=== PATIENT | female | born 1935 | race Caucasian/White ===

== ENCOUNTER 2018-11-08 10:12 | Day surgery (SDC) | payer MEDICARE ==
[~2018-11-08 10:12] MED LIST: LACTATED RINGERS 1,000 ML IV SCH; SODIUM CHLORIDE 0.9% 1,000 ML IV SCH
[2018-11-08] MEDS ORDERED: CLINDAMYCIN 600 MG in SODIUM CHLORIDE 0.9% IRRIGATIO 250 ML IRRIGATION ONE (11:30)
[2018-11-08] MEDS ORDERED: CLINDAMYCIN 900 MG in DEXTROSE 5% IN WATER 50 ML IVPB ONE ×2 (11:30)
[2018-11-08] MEDS ORDERED: MIDAZOLAM 2 MG/2 ML VIAL ONE (12:45)
[2018-11-08] MEDS ORDERED: fentaNYL (PF) 50 MCG/ML 2 ML AMP ONE (12:45)
[2018-11-08] MEDS ORDERED: PROPOFOL 10 MG/ML 20 ML VIAL IV ONE (12:45)
[2018-11-08] MEDS ORDERED: LIDOCAINE 1% INJ 10MG/ML (20 ML MDV) ONE (13:04)
[2018-11-08] MEDS ORDERED: LIDOCAINE 1% INJ 10MG/ML (20 ML MDV) SQ ONE ×2 (13:29→13:45)
[2018-11-08] MEDS ORDERED: ACETAMINOPHEN TAB 325 MG TAB PO PRN (14:10)
[2018-11-08] MEDS ORDERED: ACETAMINOPHEN IV (For NPO) 1,000 MG in EMPTY BAG 1 BAG IVPB ONE (14:10)
[2018-11-08] MEDS ORDERED: SPIRONOLACTONE 25 MG TAB PO STA (14:23)
[2018-11-08] MEDS: CARVEDILOL 12.5 MG TAB PO SCH (17:56)
[2018-11-08] MEDS: HYDROcodone/APAP 5-325MG 1 EACH TAB PO PRN (18:01)
[2018-11-08] MEDS: CLINDAMYCIN 900 MG in DEXTROSE 5% IN WATER 50 ML IVPB SCH ×2 (18:01)
[2018-11-08 18:10] VITALS: BMI 20.9
--- NOTE | 2018-11-08 18:55 | PCN ---
PROCEDURE NOTE DATE OF SERVICE: 11/08/2018 This patient is an 83-year-old female with ischemic cardiomyopathy, underlying left bundle branch block and class 2 CHF, left ventricular ejection fraction 35%. Her device is at [facility] and she was brought in for a biventricular ICD generator change. Patient was brought to the EP lab in a fasting state. Written informed consent was obtained prior to the procedure. Cinefluoroscopy of the leads revealed a screw-in lead in the right atrium, dual-coil ICD lead in the low RV septum and an LV lead, bipolar, in the posterolateral vein. There was left bundle branch block with a QRS width of 150 milliseconds. The left pectoral area was prepped and draped as per protocol. Lidocaine 1% was used for local anesthesia. A 4 cm incision was made directly over the generator and carried down to the level of the generator. The old generator was explanted. This was a Compellon Lumax 540 heart failure-T, serial number [id number]. The new generator that was implanted was a S-cubism model number [id number], serial number [id number]. Partial capsulectomy was performed. The leads were interrogated and were functioning normally. The P-waves were 2.9 mV. Pacing impedance in the atrium was 703 ohms. Pacing thresholds were 0.5 V at 0.5 milliseconds. The RV sensing was 20 mV. Pacing impedance was 570 ohms. HVB impedance 49 ohms. Pacing thresholds were 0.5 V at 0.5 milliseconds. The LV threshold was 0.75 V at 0.5 milliseconds. Pacing impedance 513 ohms. The device was placed in the subfascial pocket. The wound was closed in 3 layers and dressed per protocol. The device was then programmed with appropriate antitachycardia pacing, cardioversion and defibrillation with biventricular pacing with LV pacing. The patient tolerated the procedure well without any acute complications. RESULTS: Successful biventricular ICD generator change for ischemic cardiomyopathy, severe LV systolic dysfunction, ejection fraction 35%, CHF class 2, on appropriate medical treatment, and underlying left bundle branch block, QRS width 150 milliseconds. MMODL / IJN: [id number] /
--- NOTE | 2018-11-08 19:01 | LTR ---
November 08, 2018 To: Dr. Mario Courtney Re: [place] Malcolm (35) Dear Mario, I had the pleasure of seeing [place] Malcolm in electrophysiology followup. [place]'s biventricular ICD was at [facility] and she underwent biventricular ICD generator change. She will continue to follow up with you and will see us in the device clinic as per schedule. Her medications remain unchanged. Thank you for entrusting us with the care of your patient. Warm regards. Sincerely, Maik BROWNL / KAVITHAN: [id number] /
[2018-11-08] MEDS ORDERED: PRAVASTATIN SODIUM 40 MG TAB PO SCH (21:00)
[2018-11-08] MEDS ORDERED: FUROSEMIDE 40 MG TAB PO SCH (21:00)
[2018-11-09] MEDS: HYDROcodone/APAP 5-325MG 1 EACH TAB PO PRN (00:56)
[2018-11-09] MEDS: CLINDAMYCIN 900 MG in DEXTROSE 5% IN WATER 50 ML IVPB SCH ×6 (00:57→12:00)
[2018-11-09 06:20] LABS: Calcium 8.8 mg/dL (8.4-10.2); Potassium 4.6 mmol/L (3.5-5.1)
--- NOTE | 2018-11-09 07:24 | P.DS ---
Providers Attending physician: Maik Gastelum Primary care physician: [facility] Course: Patient is doing well. Sitting up in bed eating breakfast. Her chest discomfort no bruising minimal soakage no swelling over the by the ICD site No dizziness lightheadedness no palpitations respirations are normal no distress On examination afebrile 97.4F pulse rate in the 50s Bi V paced normal respirations Blood pressure 98/54 mmHg Breath sounds are clear no rhonchi no crackles Heart sounds S1 and S2 are normal no murmurs or gallops or rub Abdomen soft nontender Extremities warm no edema Impression Ischemic cardio myopathy with underlying left bundle branch block with a QRS width of 150 ms) CHF class II on medical treatment Her biventricular ICD that was implanted in [place] in 2011 has reached ANA and she underwent ICD generator change, biventricular Chronic kidney disease GFR around 40 Pacemaker defibrillator Leads functioning normally Suggest Add spironolactone to her current regimen. Femoral grams by mouth daily Continue all other heart failure medications line smoking cessation Discharge home after completion of IV antibiotics follow up in the office in 5 days Plan - Discharge Summary Discharge Rx Participant: No New Discharge Prescriptions: New RX: Spironolactone [Aldactone] 25 mg PO DAILY #90 tablet Continue RX: Carvedilol [Coreg] 12.5 mg PO BID RX: Fish Oil/Dha/Epa [Fish Oil 1,200 mg Fish Oil] 1 cap PO DAILY RX: Furosemide [Lasix] 40 mg PO HS RX: Lisinopril [Prinivil] 20 mg PO DAILY RX: Multivitamins, Thera [Multivitamin (formulary)] 1 tab PO DAILY RX: Pravastatin Sodium [Pravachol] 40 mg PO HS Discharge Medication List RX: Carvedilol [Coreg] 12.5 mg PO BID 09/27/16 [History] RX: Fish Oil/Dha/Epa [Fish Oil 1,200 mg Fish Oil] 1 cap PO DAILY 09/27/16 [ History] RX: Furosemide [Lasix] 40 mg PO HS 09/27/16 [History] RX: Lisinopril [Prinivil] 20 mg PO DAILY 09/27/16 [History] RX: Multivitamins, Thera [Multivitamin (formulary)] 1 tab PO DAILY 09/27/16 [ History] RX: Pravastatin Sodium [Pravachol] 40 mg PO HS 09/27/16 [History] RX: Spironolactone [Aldactone] 25 mg PO DAILY #90 tablet 11/08/18 [Rx] Follow up Appointment(s)/Referral(s): Maik Gastelum MD [STAFF PHYSICIAN] - 1 Week (Device clinic follow-up in 5 days Follow-up with Dr. Eubanks in 6 months) Activity/Diet/Wound Care/Special Instructions: PATIENT EDUCATION MATERIAL Instructions following a heart rhythm device implant. 1. Keep dressing DRY for 5 DAYS. You may cover the area with Saran or Cling Wrap, prior to a shower. 2. The dressing will be removed in the Device Clinic at [facility]. Absorbable sutures were used to close the wound. 3. Avoid raising the left arm above the shoulder level. 2 week restriction 4. Avoid arm movements, like backscratching, rubbing the head, or pulling on a cord. 2 weeks restriction 5. Gentle range of motion movements of the shoulder, closest to the incision should be performed to avoid a frozen shoulder. (Pendulum exercises of the shoulder) 6. The opposite arm may be used freely. 7. Avoid driving for 7 days. 8. Avoid activities such as golfing, swimming, weed whacking, lifting more than 10 pounds weight, bowling, gymnastics and weight training/lifting. (6 weeks restriction) 9. Activities such as wood chopping with an axe, pull-ups in the gymnasium, power lifting, arc-welding, being close to home induction cooktops will always be a problem. 10. Arm sling is only a reminder not to raise the arm above the head. You do not need to keep the arm completely immobilized. Your free to move the arm and use it and for normal activities. In case of any problems, please call [facility], Brandon Sumner, @ [phone], Attention: Device Clinic Device clinic follow-up in 5 days Follow-up with primary it program manager in 2-3 months Discharge Disposition: HOME SELF-CARE
[2018-11-09 08:45] VITALS: RESP 16
[2018-11-09] MEDS ORDERED: SPIRONOLACTONE 25 MG TAB PO SCH (09:00)
[2018-11-09] MEDS ORDERED: LISINOPRIL 20 MG TAB PO SCH (09:00)
[2018-11-09] MEDS: CARVEDILOL 12.5 MG TAB PO SCH (09:56)
[2018-11-09 10:02] VITALS: PULSE 60
[2018-11-09 12:43] VITALS: BP 114/56; TEMP 97.5
== END 2018-11-09 13:15 | disposition home or self-care (01) ==
LOC: CATHEP 10:12 → 1SOBS 14:09 → CATHEP 11-09 13:15
PROVIDERS: ATTEND Internal Medicine Clinical Cardiac Electrophysiology
DX: Z45.02 Encounter for adjustment and management of automatic implantable cardiac defibrillator (principal); I25.5 Ischemic cardiomyopathy; I44.7 Left bundle-branch block, unspecified; I13.0 Hypertensive heart and chronic kidney disease with heart failure and stage 1 through stage 4 chronic kidney disease, or unspecified chronic kidney disease; E11.22 Type 2 diabetes mellitus with diabetic chronic kidney disease; N18.9 Chronic kidney disease, unspecified; I50.22 Chronic systolic (congestive) heart failure; I25.10 Atherosclerotic heart disease of native coronary artery without angina pectoris; E78.5 Hyperlipidemia, unspecified; J18.9 Pneumonia, unspecified organism; F17.210 Nicotine dependence, cigarettes, uncomplicated; Z79.82 Long term (current) use of aspirin; Z79.899 Other long term (current) drug therapy; Z88.1 Allergy status to other antibiotic agents; Z88.0 Allergy status to penicillin; Z88.2 Allergy status to sulfonamides; Z91.012 Allergy to eggs
CPT/HCPCS: 33264; 80061; 80048; C1882; J2250; J2001; J3010; J0131; J2704

== ENCOUNTER → 2019-02-26 | Outpatient (CLI) | payer MEDICARE ==
--- NOTE | 2019-02-26 11:24 | XR ---
EXAM TYPE: LUMBAR SPINE X RAY SERIES COMPARISON: NONE HISTORY: Lower back pain TECHNIQUE: 4 views are submitted. FINDINGS: Alignment is anatomic. The pedicles are intact. The transverse processes are intact. There is no s pondylolysis or spondylolisthesis. Diffuse osteopenia and multilevel degenerative disc disease. Arth ropathy of the left SI joint. There is facet arthropathy. Atherosclerotic change of the vasculature. Calcifications in the left upper quadrant likely are vascular. IMPRESSION: 1. Multilevel degenerative disc disease and diffuse osteopenia.
== END | disposition home or self-care (01) ==
LOC: RADXRYALE 10:54
PROVIDERS: ATTEND Family Medicine
DX: M51.36 Other intervertebral disc degeneration, lumbar region (principal); M85.88 Other specified disorders of bone density and structure, other site
CPT/HCPCS: 72100

== ENCOUNTER → 2022-02-10 | Outpatient (CLI) | payer MEDICARE ==
--- NOTE | 2022-02-10 10:34 | XR ---
EXAMINATION TYPE: XR chest 2V DATE OF EXAM: 02/10/2022 COMPARISON: NONE TECHNIQUE: PA and lateral views submitted. HISTORY: Cough FINDINGS: The lungs are clear and there is no pneumothorax, pleural effusion, or focal pneumonia. Hyperinflat ion. Hypertrophic and degenerative change of the spine. There is a cardiac device seen. IMPRESSION: 1. No acute process. Correlate for COPD.
== END | disposition home or self-care (01) ==
LOC: RADXRYALE 10:13
PROVIDERS: ATTEND Physician Assistant
DX: R05.9 Cough, unspecified (principal)
CPT/HCPCS: 71046

== ENCOUNTER 2022-02-23 11:29 | Day surgery (SDC) | payer MEDICARE ==
[2022-02-22 09:23] VITALS: BMI 20.2
[~2022-02-23 11:29] MED LIST changes: +DEXAMETHASONE SOD PHOSPHATE 4 MG/ML 1 ML VIAL IV ONE; +HYDROmorphone 0.5 MG/0.5 ML SYRINGE IVP PRN; +LIDOCAINE 1% (10MG/ML) FOR IV START INTRADERMA PRN; +ONDANSETRON 4 MG/2 ML VIAL IVP ONE; -SODIUM CHLORIDE 0.9% 1,000 ML IV SCH
[2022-02-23] MEDS ORDERED: PROPOFOL 10 MG/ML 20 ML VIAL IV ONE (13:05)
[2022-02-23] MEDS ORDERED: LIDOCAINE 2% INJ 20 MG/ML (2 ML VIAL) ONE (13:05)
[2022-02-23] MEDS ORDERED: PHENYLEPHRINE-0.9% NACL SYG 1,000 MCG/10 ML SYRINGE ONE (13:05)
[2022-02-23] MEDS ORDERED: BUPIVACAINE (PF) 0.25% 30 ML VIAL SQ ONE (13:09)
--- NOTE | 2022-02-23 13:49 | P.OP ---
Date of Procedure: 02/23/22 Preoperative Diagnosis: Hypertrophied bone fifth toe right foot Postoperative Diagnosis: Same Procedure(s) Performed: Partial phalangectomy fifth digit right foot Anesthesia: MAC Surgeon: Benson Webber Description of Procedure: On the date of surgery the patient was taken operating room in good condition placed on the operating table supine position where an IV had been started and general anesthetic agents were administered anesthesia was then further supplemented with 4 mL of 0.25% plain Marcaine given in a digital block to the fifth digit of the patient's right foot. The patient's right foot and ankle were then prepped and draped in the usual aseptic manner and over heavy web roll padding an ankle tourniquet had been placed above the malleoli of the patient's right ankle the patient's right foot and ankle were then elevated and exsanguinated of blood utilizing Esmarch bandage and the ankle tourniquet to the patient's right ankle was inflated to 250 mmHg At this time attention was directed to the dorsal lateral side of the distal interphalangeal joint fifth digit of the right foot where an approximately 0.75 cm linear incision was made the incision was deepened via sharp dissection down through the level of the subcutaneous tissue layers all neurovascular structures encountered were identified isolated and were retracted. Some parosteal structures then incised in line with the original skin incision and underscored and retracted from the underlying bone Rotary bur was then introduced and the distal interphalangeal joint was craterized removing portions of the middle and distal phalanx at the level of the distal interphalangeal joint. When it was determined adequate bone had been resected copious amounts of sterile saline solution was used to irrigate the surgical site. Utilizing 4-0 nylon simple interrupted suture vision was coaptated and maintained. Adaptic, I fours and Kerlix roll was used to form a compression dressing was covered with 4 inch Coban. The ankle tourniquet to the patient's right ankle was deflated and adequate hemostatic return was seen in all digits of the patient's right foot in particular the fifth digit of the right foot. The patient tolerated the surgery and anesthesia well was taken to the recovery room in good postoperative condition.
[2022-02-23 14:00] VITALS: TEMP 97.4
[2022-02-23 14:39] VITALS: PULSE 60
[2022-02-23 14:52] VITALS: BP 123/65; RESP 18
== END 2022-02-23 15:54 | disposition home or self-care (01) ==
LOC: OR 11:29
PROVIDERS: ATTEND Podiatrist Foot & Ankle Surgery
DX: M89.371 Hypertrophy of bone, right ankle and foot (principal); L84 Corns and callosities; I10 Essential (primary) hypertension; Z79.899 Other long term (current) drug therapy; Z88.1 Allergy status to other antibiotic agents; Z88.0 Allergy status to penicillin; Z88.2 Allergy status to sulfonamides; Z98.891 History of uterine scar from previous surgery
CPT/HCPCS: 28124; J1100; J0690; J2405; J2370; J2704; J2001

== ENCOUNTER → 2022-06-09 | Outpatient (CLI) | payer MEDICARE ==
--- NOTE | 2022-06-09 11:03 | XR ---
EXAM TYPE: LUMBAR SPINE X RAY SERIES COMPARISON: 02/26/2019 HISTORY: Pain TECHNIQUE: 4 views are submitted. FINDINGS: Alignment is anatomic. The pedicles are intact. The transverse processes are intact. There is mode rate to severe multilevel degenerative disc disease at all levels. Multilevel facet arthropathy most pronounced at L4-5 and L5-S1. Vascular calcifications noted. Stable minimal anterior listhesis of L4 on L5 likely degenerative. Bilateral SI joint arthropathy. IMPRESSION: 1. Multilevel moderate to severe degenerative disc disease with facet arthropathy in the lower lumbar spine. Suspect foraminal encroachment L4-5 and L5-S1. 2. Minimal anterolisthesis L4 and L5 appears likely degenerative. 3. SI joint arthropathy
--- NOTE | 2022-06-09 11:04 | XR ---
EXAMINATION TYPE: XR abdomen 2V DATE OF EXAM: 06/09/2022 COMPARISON: NONE HISTORY: Pain TECHNIQUE: One view abdominal series FINDINGS: The osseous structures are intact. The bowel gas pattern is nonspecific. Lung bases are clear. Hype rtrophic and degenerative changes of the spine. Arthropathy of the hips. Vascular calcifications note d. Cardiac leads seen. IMPRESSION: 1. Nonspecific abdomen.
== END | disposition home or self-care (01) ==
LOC: RADXRYALE 10:32
PROVIDERS: ATTEND Physician Assistant
DX: M51.37 Other intervertebral disc degeneration, lumbosacral region (principal); M47.817 Spondylosis without myelopathy or radiculopathy, lumbosacral region; M53.3 Sacrococcygeal disorders, not elsewhere classified; M43.16 Spondylolisthesis, lumbar region; R10.84 Generalized abdominal pain
CPT/HCPCS: 72110; 74019

== ENCOUNTER 2023-08-28 10:46 | Inpatient (IN) | payer MEDICARE ==
--- NOTE | 2023-08-28 12:24 | ED ---
General Adult HPI - General Source: patient Mode of arrival: ambulatory Limitations: no limitations <Damaris Lester - Last Filed: 08/28/23 16:50> <Shon Charles - Last Filed: 08/28/23 19:27> - General Chief complaint: Upper Respiratory Infection Stated complaint: COUGH Time Seen by Provider: 08/28/23 10:55 - History of Present Illness Initial comments: 88-year-old female presents emergency department reporting cough. States that she had a cough for the past couple of days. She is a heavy smoker. Denies any production of her cough. She does have a diagnosis of COPD. Does not wear any oxygen. Does not do any breathing treatments. Does have a history of congestive heart failure takes Lasix. She denies any chest pain. Denies any sick contacts. History is limited as the patient is a poor historian. Son does present to bedside. States that he feels as if his mother had acute mental status change. Son does not live with the patient. He is unsure her last known well but states she is not her normal self. She has had some delayed speech. Patient feels as if her mental status change sometime yesterday morning however she originally did not report this to me when I first evaluated her. (Damaris Lester) - Related Data Home Medications Medication Instructions Recorded Confirmed Carvedilol [Coreg] 12.5 mg PO BID 09/27/16 08/28/23 Furosemide [Lasix] 40 mg PO DAILY 09/27/16 08/28/23 Pravastatin Sodium [Pravachol] 40 mg PO HS 09/27/16 08/28/23 lisinopriL [Prinivil] 5 mg PO HS 09/27/16 08/28/23 Allergies Allergy/AdvReac Type Severity Reaction Status Date / Time azithromycin Allergy Rash/Hives Verified 08/28/23 17:49 egg Allergy Rash/Hives Verified 08/28/23 17:49 erythromycin base Allergy Rash/Hives Verified 08/28/23 17:49 Penicillins Allergy Rash/Hives Verified 08/28/23 17:49 Sulfa (Sulfonamide Allergy Rash/Hives Verified 08/28/23 17:49 Antibiotics) Review of Systems ROS Other: All systems not noted in ROS Statement are negative. <Damaris Lester - Last Filed: 08/28/23 16:50> ROS Other: All systems not noted in ROS Statement are negative. <MelvinShon Yehuda - Last Filed: 08/28/23 19:27> ROS Statement: Those systems with pertinent positive or pertinent negative responses have been documented in the HPI. Past Medical History Past Medical History: Coronary Artery Disease (CAD), Hypertension History of Any Multi-Drug Resistant Organisms: None Reported Past Surgical History: Pacemaker Past Psychological History: No Psychological Hx Reported Smoking Status: Current every day smoker Past Alcohol Use History: None Reported Past Drug Use History: None Reported <Damaris Lester A - Last Filed: 08/28/23 16:50> General Exam Limitations: no limitations General appearance: alert, in no apparent distress Head exam: Present: atraumatic, normocephalic, normal inspection Eye exam: Present: normal appearance, PERRL, EOMI. Absent: scleral icterus, conjunctival injection, periorbital swelling ENT exam: Present: normal exam, mucous membranes moist Neck exam: Present: normal inspection. Absent: tenderness, meningismus, lymphadenopathy Respiratory exam: Present: normal lung sounds bilaterally. Absent: respiratory distress, wheezes, rales, rhonchi, stridor Cardiovascular Exam: Present: regular rate, normal rhythm, normal heart sounds. Absent: systolic murmur, diastolic murmur, rubs, gallop, clicks GI/Abdominal exam: Present: soft, normal bowel sounds. Absent: distended, tenderness, guarding, rebound, rigid Extremities exam: Present: normal inspection, full ROM, normal capillary refill. Absent: tenderness, pedal edema, joint swelling, calf tenderness Back exam: Present: normal inspection Neurological exam: Present: alert, oriented X3, CN II-XII intact Psychiatric exam: Present: normal affect, normal mood Skin exam: Present: warm, dry, intact, normal color. Absent: rash <Damaris Letser Felipa - Last Filed: 08/28/23 16:50> Course Vital Signs 08/28/23 08/28/23 08/28/23 10:51 10:57 14:37 Temperature 98.8 F Pulse Rate 75 81 Respiratory 20 20 Rate Blood Pressure 149/58 O2 Sat by Pulse 93 L Oximetry 08/28/23 08/28/23 08/28/23 14:47 15:00 17:03 Temperature Pulse Rate 84 69 73 Respiratory 18 18 Rate Blood Pressure 146/65 156/72 O2 Sat by Pulse 94 L 92 L Oximetry 08/28/23 17:25 Temperature Pulse Rate 103 H Respiratory 18 Rate Blood Pressure 156/58 O2 Sat by Pulse 98 Oximetry Medical Decision Making - Lab Data Result diagrams: 08/28/23 11:39 08/28/23 11:39 <Damaris Lester Felipa - Last Filed: 08/28/23 16:50> - Lab Data Result diagrams: 08/28/23 11:39 08/28/23 11:39 <MelvinShon Yehuda - Last Filed: 08/28/23 19:27> - Medical Decision Making Was pt. sent in by a medical professional or institution (, PA, MMA FIGHTER, urgent care, hospital, or detention...) When possible be specific @ -[No] Did you speak to anyone other than the patient for history (EMS, parent, family, police, friend...)? What history was obtained from this source @ -[No] Did you review nursing and triage notes (agree or disagree)? Why? @ -[I reviewed and agree with nursing and triage notes] Were old charts reviewed (outside hosp., previous admission, EMS record, old EKG, old radiological studies, urgent care reports/EKG's, detention records)? Report findings @ -[No old charts were reviewed] Differential Diagnosis (chest pain, altered mental status, abdominal pain women, abdominal pain men, vaginal bleeding, weakness, fever, dyspnea, syncope, headache, dizziness, GI bleed, back pain, seizure, CVA, palpatations, mental health, musculoskeletal)? @ -[not applicable] EKG interpreted by me (3pts min.). @ -Yes and demonstrates pacemaker with a rate of 68. FL interval 155. QRS 128. QTC of 465. No acute ST segment elevations or pressure. Pacemaker captures appropriately X-rays interpreted by me (1pt min.). @ -[None done] CT interpreted by me (1pt min.). @ -[None done] U/S interpreted by me (1pt. min.). @ -[None done] What testing was considered but not performed or refused? (CT, X-rays, U/S, labs)? Why? @ -[None] What meds were considered but not given or refused? Why? @ -[None] Did you discuss the management of the patient with other professionals (professionals i.e. Dr., PA, MMA FIGHTER, lab, RT, psych nurse, social studies department chair, hand almond blancher, teacher, property and supply officer, case packer and sealer)? Give summary @ -[No] Was smoking cessation discussed for >3mins.? @ -[No] Was critical care preformed (if so, how long)? @ -[No] Were there social determinants of health that impacted care today? How? (Homelessness, low income, unemployed, alcoholism, drug addiction, transportation, low edu. Level, literacy, decrease access to med. care, long term, rehab)? @ -[No] Was there de-escalation of care discussed even if they declined (Discuss DNR or withdrawal of care, Hospice)? DNR status @ -[No] What co-morbidities impacted this encounter? (DM, HTN, Smoking, COPD, CAD, Cancer, CVA, ARF, Chemo, Hep., AIDS, mental health diagnosis, sleep apnea, morbid obesity)? @ -[None] Was patient admitted / discharged? Hospital course, mention meds given and route, prescriptions, significant lab abnormalities, going to OR and other pertinent info. @ -[hospital course] Undiagnosed new problem with uncertain prognosis? @ -[No] Drug Therapy requiring intensive monitoring for toxicity (Heparin, Nitro, Insulin, Cardizem)? @ -[No] Were any procedures done? @ -[No] Diagnosis/symptom? @ -[default] Acute, or Chronic, or Acute on Chronic? @ -[default] Uncomplicated (without systemic symptoms) or Complicated (systemic symptoms)? @ -[default] Side effects of treatment? @ -[No] Exacerbation, Progression, or Severe Exacerbation? @ -[No] Poses a threat to life or bodily function? How? (Chest pain, USA, VA, pneumonia, PE, COPD, DKA, ARF, appy, cholecystitis, CVA, Diverticulitis, Homicidal, Suicidal, threat to staff... and all critical care pts) @ -[No] (Damaris Lester) Patient is signed out to me by previous shift physician, Dr. Lester. Briefly, patient is 80-year-old female initially presented to the emergency department for home for cough. Family did arrive later and was concerned about patient's altered mental status. She had a computed tomography scan of brain that showed acute versus subacute CVA. His unclear when patient's last known normal was. Patient had a candidate for alteplase. Plan was to follow-up with CT angiography for evaluation of large vessel occlusion. CT angiography of the hea d and neck was negative. Patient reevaluated at bedside at 7:30 PM found to be within stable medical condition. Patient will be admitted with consultation to neurology. Patient given an aspirin. (Shon Charles) - Lab Data Lab Results 08/28/23 08/28/23 08/28/23 Range/Units 11:39 11:39 11:39 WBC 6.7 (3.8-10.6) k/uL RBC 4.85 (3.80-5.40) m/uL Hgb 14.3 (11.4-16.0) gm/dL Hct 44.2 (34.0-46.0) % MCV 91.1 (80.0-100.0) fL MCH 29.4 (25.0-35.0) pg MCHC 32.3 (31.0-37.0) g/dL RDW 12.7 (11.5-15.5) % Plt Count 160 (150-450) k/uL MPV 8.4 Neutrophils % 68 % Lymphocytes % 23 % Monocytes % 5 % Eosinophils % 2 % Basophils % 1 % Neutrophils # 4.5 (1.3-7.7) k/uL Lymphocytes # 1.5 (1.0-4.8) k/uL Monocytes # 0.4 (0-1.0) k/uL Eosinophils # 0.1 (0-0.7) k/uL Basophils # 0.1 (0-0.2) k/uL PT 11.6 (10.0-12.5) sec INR 1.1 (<1.2) APTT 26.0 (22.0-30.0) sec Sodium 146 H (137-145) mmol/L Potassium 4.8 (3.5-5.1) mmol/L Chloride 104 (98-107) mmol/L Carbon Dioxide 27 (22-30) mmol/L Anion Gap 15 mmol/L BUN 28 H (7-17) mg/dL Creatinine 1.11 H (0.52-1.04) mg/dL Est GFR (CKD-EPI)AfAm 51 (>60 ml/min/1.73 sqM) Est GFR (CKD-EPI)NonAf 45 (>60 ml/min/1.73 sqM) Glucose 84 (74-99) mg/dL Plasma Lactic Acid Ildefonso (0.7-2.0) mmol/L Calcium 9.9 (8.4-10.2) mg/dL Total Bilirubin 1.2 (0.2-1.3) mg/dL AST 28 (14-36) U/L ALT 17 (4-34) U/L Alkaline Phosphatase 70 (38-126) U/L Troponin I (0.000-0.034) ng/mL NT-Pro-B Natriuret Pep 4240 pg/mL Total Protein 7.6 (6.3-8.2) g/dL Albumin 4.2 (3.5-5.0) g/dL Influenza Type A (PCR) (Not Detectd) Influenza Type B (PCR) (Not Detectd) RSV (PCR) (Not Detectd) SARS-CoV-2 (PCR) (Not Detectd) 08/28/23 08/28/23 08/28/23 Range/Units 11:39 11:39 11:39 WBC (3.8-10.6) k/uL RBC (3.80-5.40) m/uL Hgb (11.4-16.0) gm/dL Hct (34.0-46.0) % MCV (80.0-100.0) fL MCH (25.0-35.0) pg MCHC (31.0-37.0) g/dL RDW (11.5-15.5) % Plt Count (150-450) k/uL MPV Neutrophils % % Lymphocytes % % Monocytes % % Eosinophils % % Basophils % % Neutrophils # (1.3-7.7) k/uL Lymphocytes # (1.0-4.8) k/uL Monocytes # (0-1.0) k/uL Eosinophils # (0-0.7) k/uL Basophils # (0-0.2) k/uL PT (10.0-12.5) sec INR (<1.2) APTT (22.0-30.0) sec Sodium (137-145) mmol/L Potassium (3.5-5.1) mmol/L Chloride (98-107) mmol/L Carbon Dioxide (22-30) mmol/L Anion Gap mmol/L BUN (7-17) mg/dL Creatinine (0.52-1.04) mg/dL Est GFR (CKD-EPI)AfAm (>60 ml/min/1.73 sqM) Est GFR (CKD-EPI)NonAf (>60 ml/min/1.73 sqM) Glucose (74-99) mg/dL Plasma Lactic Acid Ildefonso 1.4 (0.7-2.0) mmol/L Calcium (8.4-10.2) mg/dL Total Bilirubin (0.2-1.3) mg/dL AST (14-36) U/L ALT (4-34) U/L Alkaline Phosphatase (38-126) U/L Troponin I 0.026 (0.000-0.034) ng/mL NT-Pro-B Natriuret Pep pg/mL Total Protein (6.3-8.2) g/dL Albumin (3.5-5.0) g/dL Influenza Type A (PCR) Not Detected (Not Detectd) Influenza Type B (PCR) Not Detected (Not Detectd) RSV (PCR) Not Detected (Not Detectd) SARS-CoV-2 (PCR) Not Detected (Not Detectd) Disposition <Damaris Lester - Last Filed: 08/28/23 16:50> Decision Time: 19:27 <Shon Charles - Last Filed: 08/28/23 19:27> Clinical Impression: CVA (cerebral vascular accident) Disposition: ADMITTED IP TO THIS HOSP Condition: Fair Referrals: Mario Courtney DO [Primary Care Provider] - 1-2 days
[2023-08-28 12:29] LABS: Basophils # (A) 0.1 k/uL (0-0.2); Basophils % (A) 1 %; Eosinophils # (A) 0.1 k/uL (0-0.7); Eosinophils % (A) 2 %; HCT 44.2 % (34.0-46.0); HGB 14.3 gm/dL (11.4-16.0); Lymphocytes # (A) 1.5 k/uL (1.0-4.8); Lymphocytes % (A) 23 %; MCH 29.4 pg (25.0-35.0); MCHC 32.3 g/dL (31.0-37.0); MCV 91.1 fL (80.0-100.0); Mean Platelet Volume 8.4; Monocytes # (A) 0.4 k/uL (0-1.0); Monocytes % (A) 5 %; Neutrophils # (A) 4.5 k/uL (1.3-7.7); Neutrophils % (A) 68 %; Platelet Count 160 k/uL (150-450); RBC 4.85 m/uL (3.80-5.40); RDW 12.7 % (11.5-15.5); WBC 6.7 k/uL (3.8-10.6)
[2023-08-28 12:37] LABS: INR 1.1 (<1.2); Prothrombin Time 11.6 sec (10.0-12.5)
--- NOTE | 2023-08-28 12:39 | XR ---
EXAMINATION TYPE: XR chest 2V DATE OF EXAM: 08/28/2023 12:35 PM COMPARISON: Chest radiographs from 02/10/2022 TECHNIQUE: XR chest 2V Frontal and lateral views of the chest. CLINICAL INDICATION:Female, 88 years old with history of difficulty breathing; FINDINGS: Lungs/Pleura: There is flattening of the diaphragm with increased lucency of the lungs. No evidence o f pneumothorax, pleural effusion or focal consolidation. Chronic senescent parenchymal change. Pulmonary vascularity: Unremarkable. Heart/mediastinum: Cardiomediastinal silhouette is enlarged and stable. Atherosclerotic calcificatio ns are seen in the aorta. Three lead cardiac conduction device overlying the left hemithorax with preeti d tips projecting over the right ventricle, right atrium and coronary sinus. Musculoskeletal: No acute osseous pathology. IMPRESSION: 1. No acute cardiopulmonary disease process. 2. COPD changes.
[2023-08-28 12:45] LABS: ALT 17 U/L (4-34); AST 28 U/L (14-36); African American GFR (CKD) 51 (>60 ml/min/1.73 sqM); Albumin 4.2 g/dL (3.5-5.0); Alkaline Phosphatase 70 U/L (38-126); Anion Gap 15 mmol/L; Blood Urea Nitrogen 28 mg/dL (7-17); Calcium 9.9 mg/dL (8.4-10.2); Carbon Dioxide 27 mmol/L (22-30); Chloride 104 mmol/L (98-107); Glucose 84 mg/dL (74-99); Non-African American GFR(CKD) 45 (>60 ml/min/1.73 sqM); Potassium 4.8 mmol/L (3.5-5.1); Sodium 146 mmol/L (137-145); Total Bilirubin 1.2 mg/dL (0.2-1.3); Total Protein 7.6 g/dL (6.3-8.2)
[2023-08-28 12:54] LABS: NT-Pro-B-Type Natriuretic Pept 4240 pg/mL
[2023-08-28] MEDS ORDERED: IPRATROPIUM-ALBUTEROL 3 ML NEB INHALATION STA (13:48)
[2023-08-28] MEDS ORDERED: cefTRIAXone IN SWFI 1,000 MG/10 ML SYRINGE IVP STA (16:19)
--- NOTE | 2023-08-28 16:50 | CT ---
EXAMINATION TYPE: CT brain wo con CT DLP: 1159.4 mGycm, Automated exposure control for dose reduction was used. DATE OF EXAM: 08/28/2023 4:39 PM COMPARISON: None. CLINICAL INDICATION:Female, 88 years old with history of delayed speech, confusion, Delayed speech, c onfusion TECHNIQUE: Brain: Axial CT images of the brain were obtained with coronal and sagittal reformats created and rev iewed. Contrast used: None. Oral contrast used: None. FINDINGS: Brain: Extra-axial spaces: No abnormal extra-axial fluid collections. Ventricular system: Within normal limits Cerebral parenchyma: Mcbride white matter loss of differentiation within the left frontal lobe. No acute intraparenchymal hemorrhage or mass effect. The remainder of the mcbride-white junctions are well diff erentiated. Scattered hypoattenuating areas are seen within the white matter. Cerebellum: Unremarkable. Mass effect: No evidence of midline shift. Intracranial vasculature: Atherosclerotic calcifications of the intracranial vessels. Soft tissues: Normal. Calvarium/osseous structures: No depressed skull fracture. Paranasal sinuses and mastoid air cells: Mild scattered paranasal sinus disease. Visualized orbits: Orbital contents are intact. 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 No evidence for hemorrhagic conversio n. Findings communicated to Dr. Damaris Lester DO on 08/28/2023 4:[address] Philip Russell.
--- NOTE | 2023-08-28 18:52 | CT ---
EXAMINATION TYPE: CT angio head neck CT DLP: 294.2 mGycm, Automated exposure control for dose reduction was used. DATE OF EXAM: 08/28/2023 6:36 PM COMPARISON: CT brain 08/28/2023.. CLINICAL INDICATION:Female, 88 years old with history of stroke; PHH, cva, weakness, ams TECHNIQUE: Axially acquired helical CT angiogram of the head and neck was obtained with contrast. Axi al images are supplemented with 3D reconstructions which [facility] NASCET criteria used. Contrast used:65cc mL of Isovue 370 with IV Contrast, Oral contrast used: None. FINDINGS: CTA HEAD: No evidence of acute intracranial hemorrhage, mass effect, or midline shift. The ventricles, sulci, a nd cisterns are unremarkable. Acute/subacute stanley-white loss of differentiation in the left frontal l obe is less well appreciated on this scan. The visualized portions of the internal carotid arteries, middle cerebral arteries, anterior cerebral arteries, and posterior cerebral arteries are patent. The basilar and vertebral arteries are patent. CTA NECK: Right Carotid System: The common carotid artery and external carotid artery are patent. The carotid bifurcation demonstrate s no evidence of hemodynamically significant stenosis. The remaining portions of the internal carotid artery demonstrate normal size without significant narrowing. Left Carotid System: The common carotid artery and external carotid artery are patent. The carotid bifurcation demonstrate s stent graft present. Stent graft is intact.. The remaining portions of the internal carotid artery demonstrate normal size without significant narrowing. Vertebral arteries are patent without evidence hemodynamically significant stenosis. There is a three-vessel aortic arch. The origins of the great vessels are patent. No evidence of hemo dynamically significant stenosis. Upper thorax: Moderate to severe centrilobular emphysema changes in the lung apices. IMPRESSION: 1. No evidence of dissection of the cervical internal carotid arteries or vertebral arteries or any e vidence of significant stenosis at the right carotid bifurcation. Left carotid bifurcation demonstra caitlin patent stent graft 2. No evidence of intracranial high-grade stenosis or intracranial aneurysm. 3. Please see CT same day for findings regarding the left frontal lobe.
[2023-08-28] MEDS ORDERED: NALOXONE 0.4 MG/ML 1 ML VIAL IV PRN (19:25)
[2023-08-28] MEDS ORDERED: ASPIRIN 81 MG PO STA (19:26)
--- NOTE | 2023-08-29 06:54 | P.HPIM ---
History of Present Illness H&P Date: 08/28/23 Chief Complaint: Shortness of breath 88-year-old female with past medical history of coronary artery disease and hypertension, congestive heart failure Patient is very hard of hearing unable to provide any meaningful history which was obtained by reviewing medical records and discussing case with the adductor Patient initially came in complaining of coughing and shortness of breath which has been going on for couple days she denies any history of COPD however she is a heavy smoker she is not on any breathing treatment not on home oxygen. She denies any chest pain fevers chills sore throat runny nose body aches. Patient's son then at that he feels that his mother mental status has changed however he doesn't live with her and not sure when this started but he confirmed that she does not seem to be her normal self she is having some delayed speech. This was not initially reported in the ED until later which triggered a stroke workup Computed tomography scan of the brain revealed acute/subacute stroke in the left frontal lobe for which patient will be admitted for further neurology evaluation review of systems Unable to obtain patient is very hard of hearing on exam Constitutional: No acute distress, cooperative, cachectic Eyes: Anicteric sclerae, moist conjunctiva, Pupils equal round reactive to light ENMT: NC/AT Oropharynx clear, no erythema, or exudates Neck: Supple, no masses, or JVD No carotid bruits No thyromegaly Lungs: Clear to auscultation Clear to percussion Normal respiratory effort, no accessory muscle use Cardiovascular: Heart regular in rate and rhythm, No murmurs, gallops, or rubs No peripheral edema Abdominal: Soft Nontender, no guarding, rebound or rigidity Abdomen moving with respiration Normoactive bowel sounds No hepatomegaly, No splenomegaly No palpable mass No abdominal wall hernia noted Extremities: No digital cyanosis Pedal pulses weak and symmetrical Radial pulses weak and symmetrical No calf tenderness Psychiatric: Alert but she only says that she is hard of hearing and cannot hear anything that time saying Neuro I used signaling for her to follow some commands which was able to do so however could not evaluate cranial nerves. Strength is 4 out of 5 throughout upper and lower extremities Lymphatics: no palpable cervical or supraclavicular lymph nodes Past Medical History Past Medical History: Coronary Artery Disease (CAD), Hypertension History of Any Multi-Drug Resistant Organisms: None Reported Past Surgical History: Pacemaker Past Psychological History: No Psychological Hx Reported Smoking Status: Current every day smoker Past Alcohol Use History: None Reported Past Drug Use History: None Reported Medications and Allergies Home Medications Medication Instructions Recorded Confirmed Type Carvedilol [Coreg] 12.5 mg PO BID 09/27/16 08/28/23 History Furosemide [Lasix] 40 mg PO DAILY 09/27/16 08/28/23 History Pravastatin Sodium [Pravachol] 40 mg PO HS 09/27/16 08/28/23 History lisinopriL [Prinivil] 5 mg PO HS 09/27/16 08/28/23 History Allergies Allergy/AdvReac Type Severity Reaction Status Date / Time azithromycin Allergy Rash/Hives Verified 08/28/23 17:49 egg Allergy Rash/Hives Verified 08/28/23 17:49 erythromycin base Allergy Rash/Hives Verified 08/28/23 17:49 Penicillins Allergy Rash/Hives Verified 08/28/23 17:49 Sulfa (Sulfonamide Allergy Rash/Hives Verified 08/28/23 17:49 Antibiotics) Physical Exam Vitals: Vital Signs Temp Pulse Resp BP Pulse Ox 08/29/23 06:22 98.7 F 61 18 130/47 95 08/29/23 02:00 98.2 F 72 18 145/65 98 08/28/23 19:00 99 08/28/23 17:25 103 H 18 156/58 98 08/28/23 17:04 93 L 08/28/23 17:03 73 18 156/72 92 L 08/28/23 15:00 69 18 146/65 94 L 08/28/23 14:47 84 08/28/23 14:37 81 08/28/23 10:57 20 08/28/23 10:51 98.8 F 75 20 149/58 93 L Intake and Output 08/28/23 08/28/23 08/29/23 14:59 22:59 06:59 Other: Weight 49.895 kg Results CBC & Chem 7: 08/28/23 11:39 08/28/23 11:39 Labs: Abnormal Lab Results - Last 24 Hours (Table) 08/28/23 Range/Units 11:39 Sodium 146 H (137-145) mmol/L BUN 28 H (7-17) mg/dL Creatinine 1.11 H (0.52-1.04) mg/dL Assessment and Plan Assessment: 88-year-old female with hypertension, congestive heart failure, coronary artery disease coming in initially for shortness of breath and coughing however later patient's son reported changes in mental status and CAT scan of the brain showed possible subacute ischemic event in the left frontal lobe for which patient was admitted to discuss case with the ED doctor and accepted the admission for acute/subacute stroke for neurology evaluation Acute/subacute left frontal lobe stroke Neurology evaluation Neurochecks Fall precautions PT/OT evaluation Aspirin and statin Chest x-ray showed no acute pathology Brain CT without contrast showed acute/subacute CVA involving the left frontal lobe without evidence of hemorrhagic conversion CT angios of the head and neck showed no evidence of dissection of the cervical internal carotid arteries and vertebral arteries no evidence of significant stenosis of the right carotid bifurcation. Left carotid bifurcation de monstrated patent stents graft. No evidence of intracranial high-grade stenosis or aneurysm Check echocardiogram Hypertension Low for permissive hypertension Resume Coreg Hold lisinopril Blood work overall unremarkable White count 6.7 hemoglobin 14.3 Sodium 146 potassium 4.8 Bun 28 creatinine 1 Full code DVT prophylaxis mechanical
[2023-08-29] MEDS ORDERED: ENOXAPARIN 40 MG/0.4 ML SYRINGE SQ SCH (09:00)
[2023-08-29 09:51] LABS: Glucose,Whole Blood 70 mg/dL (70-110)
[2023-08-29] MEDS: ASPIRIN 81 MG PO SCH (09:52)
[2023-08-29] MEDS: carvediloL 12.5 MG TAB PO SCH ×2 (09:52→16:17)
[2023-08-29] MEDS: SODIUM CHLORIDE 0.9% 1,000 ML IV SCH (09:52)
--- NOTE | 2023-08-29 11:04 | P.PN ---
Subjective Progress Note Date: 08/29/23 Patient is a 88 year old F with PMH of deafness, CAD, hypertension, systolic CHF initially presented to the ED for cough and shortness of breath. The son who does not live with her indicated her mentation was not at baseline and delayed speech. Thus, CVA workup was pursued. She underwent extensive workup in the ED. Vital signs were stable. CBC unremarkable. Coag panel unremarkable. CMP Na 146, BUN 28, Cr 1.11. Lactic acid 1.4. Troponin 0.026. BNP 4240. Flu, COVID, RSV negative. EKG ventricular paced rhythm. CXR findings of COPD. CT brain acute/subacute CVA of the left frontal lobe. CTA head and neck no high grade stenosis Patient was admitted for workup of CVA and Neurology consult. 08/29 Patient was seen and examined. No changes neurologically. Very hard of hearing. She reports no complaints. Asking to help be boosted up in bed. General: non toxic, no distress, appears at stated age Derm: warm, dry Head: atraumatic, normocephalic, symmetric Eyes: EOMI, no lid lag, anicteric sclera Cardiovascular: S1S2 reg, no murmur Lungs: CTA bilateral, no rhonchi, no rales , no accessory muscle use Ext: no gross muscle atrophy, no edema, no contractures Neuro: no focal neuro deficits Acute CVA Hypernatremia Acute kidney injury Chronic conditions: Deafness, CAD, hypertension, systolic CHF Based on my assessment of this patient, this patient meets a high complexity level of care. Patient has an acute diagnosis of acute CVA which poses a threat to life or bodi ly function. Acute CVA: A1c. Lipid panel. Echo. Neurochecks. Telemetry monitoring. PT/OT/ST consult. Neurology consult. Hypernatremia: Dehydration. Start NS at 50 cc/hr. Caution due to low EF. Acute kidney injury: Management as above. Lovenox SQ for DVT prophylaxis. FULL CODE. I have reviewed the following gift consultant notes: I have reviewed the results of the following tests: As above. I have ordered the following tests: BMP. A1c. Lipid panel. Echo. I have discussed the care of this patient with the following independent historian: I have independently interpreted the following test below: CXR. I have discussed the management of this patient with the following physician: Objective - Vital Signs Vital signs: Vital Signs Temp 98.7 F 08/29/23 06:22 Pulse 61 08/29/23 06:22 Resp 18 08/29/23 06:22 BP 130/47 08/29/23 06:22 Pulse Ox 95 08/29/23 06:22 FiO2 Intake & Output 08/28/23 08/29/23 08/29/23 18:59 06:59 18:59 Weight 49.895 kg - Labs CBC & Chem 7: 08/28/23 11:39 08/28/23 11:39 Labs: Abnormal Lab Results - Last 24 Hours (Table) 08/28/23 Range/Units 11:39 Sodium 146 H (137-145) mmol/L BUN 28 H (7-17) mg/dL Creatinine 1.11 H (0.52-1.04) mg/dL
[2023-08-29 12:19] LABS: Glucose,Whole Blood 68 mg/dL (70-110)
[2023-08-29 13:02] LABS: Glucose,Whole Blood 69 mg/dL (70-110)
--- NOTE | 2023-08-29 13:14 | CA ---
Transthoracic Echo Report Name: [place] Malcolm Age: 88 Gender: F : 1935 Exam Date: 08/29/2023 11:01 Exam Location: [facility] Ht (in): 61 Wt (lb): 110 Ordering Physician: Dennis Sinclair MD Attending/Referring Phys: [id number], Yahir Rn Labor And Delivery Humaira Mahoney [facility] Procedure CPT: Indications: stroke Cardiac Hx: Technical Quality: Technically difficult study Contrast 1: Definity Total Dose (mL): 5 Contrast 2: Total Dose (mL): MEASUREMENTS (Male / Female) Normal Values 2D ECHO LV Diastolic Diameter PLAX 5.4 cm 4.2 - 5.9 / 3.9 - 5.3 cm LV Systolic Diameter PLAX 4.9 cm IVS Diastolic Thickness 0.7 cm 0.6 - 1.0 / 0.6 - 0.9 cm LVPW Diastolic Thickness 0.9 cm 0.6 - 1.0 / 0.6 - 0.9 cm LV Relative Wall Thickness 0.3 LVOT Diameter 2.0 cm Ascending Aorta Diameter 2.8 cm M-MODE Aortic Root Diameter MM 2.4 cm LA Systolic Diameter MM 3.7 cm LA Ao Ratio MM 1.5 AV Cusp Separation MM 1.9 cm DOPPLER AV Peak Velocity 163.6 cm/s AV Peak Gradient 10.7 mmHg AV Mean Velocity 110.4 cm/s AV Mean Gradient 5.6 mmHg AV Velocity Time Integral 36.7 cm AI Peak Velocity 378.2 cm/s AI Peak Gradient 57.2 mmHg AI Pressure Half Time 553.3 ms LVOT Peak Velocity 119.3 cm/s LVOT Peak Gradient 5.7 mmHg LVOT Velocity Time Integral 25.3 cm LVOT Stroke Volume 75.5 cm??? LVOT Stroke Volume Index 51.6 ml/m??? LVOT Cardiac Index 3089.8 cm???/min???m??? AV Area Cont Eq vti 2.1 cm??? AV Area Cont Eq pk 2.2 cm??? MR Peak Velocity 443.1 cm/s MR Peak Gradient 78.5 mmHg Mitral E Point Velocity 72.4 cm/s Mitral A Point Velocity 81.5 cm/s Mitral E to A Ratio 0.9 MV Deceleration Time 170.9 ms LV E' Lateral Velocity 4.3 cm/s Mitral E to LV E' Lateral Ratio 16.8 LV E' Septal Velocity 4.5 cm/s Mitral E to LV E' Septal Ratio 16.0 Right Atrial Pressure 3.0 mmHg FINDINGS Left Ventricle Left ventricular wall thickness normal. Moderate left ventricular dilatation. Severely reduced global left ventricular systolic function. Left ventricular ejection fraction is estimated at 30-35 %. Severe akinesis of the inferior and inferoseptal wall, the rest of the hannah are hypokinetic Right Ventricle Right ventricle not well visualized. Unable to estimate the right ventricular systolic pressure. Catheter/pacemaker wire in the right ventricular cavity. Right Atrium Normal right atrial size. Catheter/pacemaker wire in the right atrial cavity. Left Atrium Severe left atrial dilatation. Mitral Valve Mitral valve thickened. Mild mitral annular calcification. Moderate to severe mitral regurgitation. Aortic Valve Aortic valve not well visualized. Aortic valve sclerosis. Moderate aortic regurgitation. Tricuspid Valve Structurally normal tricuspid valve. Mild tricuspid regurgitation. Pulmonic Valve Pulmonic valve not well visualized. Pericardium No pericardial effusion. Aorta Normal size aortic root and proximal ascending aorta. CONCLUSIONS 1. Severely impaired left ventricular systolic function with segmental wall motion abnormality 2. A catheter is noted in the right ventricle 3. Moderate to severe mitral and moderate aortic regurgitation Previewed by: Dr. Maikel Marvin MD (Electronically Signed) Final Date: 29 August 2023 13:12
[2023-08-29 13:44] LABS: Glucose,Whole Blood 127 mg/dL (70-110)
[2023-08-29 16:16] LABS: Glucose,Whole Blood 200 mg/dL (70-110)
--- NOTE | 2023-08-29 18:29 | USB ---
Reason for Exam: Clinical finding. Technique: Method: Targeted. Findings: The upper section of the breast of the left breast, the axilla of the left breast and the retroareolar of the left breast were scanned. Targeted ultrasound 9 to 10:00 position including the axilla. There was technical difficulty in the sonographers ability to scan the entire breast due to very thin breast tissue in addition to the large size of the 10:00 mass which measured 4.2 x 3.7 x 3.3 cm. This is very suspicious, hypoechoic irregular with angular margins and associated vascularity. A mildly thickened but nonenlarged lymph node in the left axilla measures 9 x 8 x 6 mm. Cortex measuring up to 4 mm thick. Overall Assessment: Highly suggestive of malignancy, BI-RAD 5 Management: Surgical Consultation of the left breast. Recommend establishing surgical care for outpatient follow-up for patient's highly suspicious 4.2 cm left breast mass. The patient will need bilateral diagnostic mammograms to complete the workup and whole left breast ultrasound when able. The mass is highly suggestive of breast cancer. Sampling of the prominent but indeterminate left axillary node should also be considered. Electronically signed and approved by: Jessi White M.D. Radiologist
[2023-08-29 19:52] LABS: Glucose,Whole Blood 137 mg/dL (70-110)
[2023-08-29] MEDS: ATORVASTATIN 40 MG TAB PO SCH (20:47)
[2023-08-29] MEDS ORDERED: PRAVASTATIN SODIUM 40 MG TAB PO SCH (21:00)
[2023-08-29] MEDS: ACETAMINOPHEN TAB 325 MG TAB PO PRN (22:41)
[2023-08-30 00:55] LABS: African American GFR (CKD) 59 (>60 ml/min/1.73 sqM); Anion Gap 6 mmol/L; Blood Urea Nitrogen 28 mg/dL (7-17); Calcium 8.7 mg/dL (8.4-10.2); Carbon Dioxide 27 mmol/L (22-30); Chloride 106 mmol/L (98-107); Glucose 79 mg/dL (74-99); Magnesium 1.9 mg/dL (1.6-2.3); Non-African American GFR(CKD) 51 (>60 ml/min/1.73 sqM); Potassium 4.3 mmol/L (3.5-5.1); Sodium 139 mmol/L (137-145)
[2023-08-30] MEDS ORDERED: MORPHINE SULFATE 2 MG/ML SYRINGE IVP STA (04:17)
[2023-08-30] MEDS: HYDROcodone/APAP 5-325MG 1 EACH TAB PO PRN ×2 (04:53→21:12)
[2023-08-30] MEDS: SODIUM CHLORIDE 0.9% 1,000 ML IV SCH (04:55)
[2023-08-30] MEDS: carvediloL 12.5 MG TAB PO SCH ×2 (06:08→16:51)
[2023-08-30 06:10] LABS: Glucose,Whole Blood 79 mg/dL (70-110)
--- NOTE | 2023-08-30 08:11 | P.CNNES ---
History of Present Illness Consult date: 08/29/23 Requesting physician: Shon Charles Reason for Consult: CVA History of Present Illness: Patient is a 88-year-old right-handed female came to the hospital by ambulance yesterday at 10:46 AM for difficulty speaking. Patient states that on Monday, 2 days ago she had difficulty speaking. Patient lives by herself although her sons lives close to her. Patient states that she usually uses a walker when she feels like using it otherwise she does not use device. She denies any worsening of her gait, any numbness tingling focal weakness or facial droop. As per EMS flow sheet, although they were dispatched for stroke/TIA, however in the narrative they mentioned nothing about stroke, rather than cough. According to EMS flow sheet when they arrived, patient was sitting on the edge of the bed complaining of productive cough. Patient denied any recent trauma, chest pain or difficulty breathing. Patient's vital signs at the scene was blood pressure 158/77, pulse rate 88, saturation 92% and respirations 17. Patient's vital signs on arrival blood pressure 149/58, pulse rate 75 temperature 98.8. Blood tests shows normal CBC, PT/PTT, sodium 146 potassium 4.8, BUN 28, creatinine 1.11. Hepatic panel is normal, troponin negative. Influenza, RSV and coronal virus PCR negative. EKG showed electronic ventricul ar pacemaker chest x-ray showed no acute cardiopulmonary disease, COPD changes. CT head revealed findings of acute/subacute CVA involving the left frontal lobe. No evidence for hemorrhage. I personally reviewed CT head, agree with the findings. Home medications include Coreg, Lasix 40 mg, lisinopril 5 mg and pravastatin 40 mg. Patient does not take any antiplatelet medication at home. Review of Systems Constitutional: Denies chills, Denies fever Eyes: denies blurred vision, denies diplopia, denies pain Ears: bilateral: decreased hearing, deny: ear discharge Ears, nose, mouth and throat: Denies headache, Denies sore throat, Denies vertigo Cardiovascular: Denies chest pain, Denies shortness of breath Respiratory: Reports cough with sputum, Denies wheezing Gastrointestinal: Denies abdominal pain, Denies diarrhea, Denies nausea, Denies vomiting Genitourinary: Denies dysuria, Denies hematuria Musculoskeletal: Reports low back pain, Reports neck pain, Denies myalgias Integumentary: Denies pruritus, Denies rash Neurological: Reports as per HPI Psychiatric: Denies anxiety, Denies depression Endocrine: Denies fatigue, Denies weight change Hematologic/Lymphatic: Denies easy bleeding, Denies easy bruising Past Medical History Past Medical History: Coronary Artery Disease (CAD), Heart Failure, COPD, CVA/TIA, Hypertension History of Any Multi-Drug Resistant Organisms: None Reported Past Surgical History: Pacemaker Type of Cardiac Device: Permanent Pacemaker Device Placement Date:: unknown Past Psychological History: No Psychological Hx Reported Smoking Status: Current every day smoker Past Alcohol Use History: None Reported Past Drug Use History: None Reported Medications and Allergies Home Medications Medication Instructions Recorded Confirmed Type Carvedilol [Coreg] 12.5 mg PO BID 09/27/16 08/28/23 History Furosemide [Lasix] 40 mg PO DAILY 09/27/16 08/28/23 History Pravastatin Sodium [Pravachol] 40 mg PO HS 09/27/16 08/28/23 History lisinopriL [Prinivil] 5 mg PO HS 09/27/16 08/28/23 History Allergies Allergy/AdvReac Type Severity Reaction Status Date / Time azithromycin Allergy Rash/Hives Verified 08/28/23 17:49 egg Allergy Rash/Hives Verified 08/28/23 17:49 erythromycin base Allergy Rash/Hives Verified 08/28/23 17:49 Penicillins Allergy Rash/Hives Verified 08/28/23 17:49 Sulfa (Sulfonamide Allergy Rash/Hives Verified 08/28/23 17:49 Antibiotics) Physical Examination - Vital Signs Vital Signs: Vital Signs Temp Pulse Pulse Resp BP BP Pulse Ox 08/29/23 16:12 97.6 F 62 20 133/56 98 08/29/23 12:15 97.5 F L 60 18 110/61 99 08/29/23 11:34 68 16 148/68 98 08/29/23 10:56 80 16 145/76 98 08/29/23 09:00 97.4 F L 66 16 130/47 96 08/29/23 06:22 98.7 F 61 18 130/47 95 08/29/23 02:00 98.2 F 72 18 145/65 98 08/28/23 19:00 99 08/28/23 17:25 103 H 18 156/58 98 Intake and Output 08/29/23 08/29/23 08/29/23 06:59 14:59 22:59 Intake Total 118 118 Balance 118 118 Intake: Oral 118 118 Other: Voiding Method Toilet Weight 49.895 kg Patient is an elderly female, very pleasant, slightly somnolent, in no acute distress. Patient is slightly somnolent, but does become alert awake oriented to time place and person. Patient knows it is July 2023, her date of and she believes that she is in [facility]. Speech is mildly dysarthric and language functions are normal. Patient can name and repeat very well. No aphasia. Attention, concentration is slightly impaired and fund of knowledge is adequate for her age and condition. On cranial nerve examination, pupils are very small, but equal, round and reacting to light, visual trimble are full on confrontation, with no neglect on double simultaneous stimulation. Extraocular muscles are intact with no nystagmus. Face is symmetric, tongue protrudes to the midline. 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 On muscle strength testing, there is no pronator drift, although has mild right elbow flexion and pronation. Muscle strength is normal in the arms and legs distally and proximally except right deltoid which is 5-. Her strength appears normal in the lower limbs. Deep tendon reflexes are symmetric, very hypoactive and plantars downgoing bilaterally. Sensory to touch is equal with no neglect on double simultaneous stimulation. Cerebellar function showed no ataxia for [id number] testing. No dysdiadochokinesia. No ataxia for [id number] testing on either side. Tone and bulk of muscles normal. Gait deferred.. On general examination, there is no carotid bruit or murmur, S1-S2 audible. Chest is clear on consultation. Abdomen is soft nontender. No organomegaly, bowel sounds present. Peripheral pulses are present. No peripheral edema. Results - Laboratory Findings CBC and BMP: 08/28/23 11:39 08/30/23 00:21 Abnormal Lab Findings: Abnormal Labs 08/28/23 08/29/23 08/29/23 11:39 12:18 13:01 Sodium 146 H BUN 28 H Creatinine 1.11 H POC Glucose (mg/dL) 68 L 69 L 08/29/23 08/29/23 13:43 16:14 Sodium BUN Creatinine POC Glucose (mg/dL) 127 H 200 H Assessment and Plan Assessment: * Acute ischemic stroke left frontal region, probably due to distal embolism. Patient's current NIH stroke scale is 1 due to dysarthria. * Heart failure * CAD * COPD * Hypertension * Pacemaker * History of left ICA stent Plan: * Patient came with acute stroke. Patient was not a candidate for TPA, as she came outside the window for TPA. No large vessel occlusion. * Patient's stroke appears embolic in nature, most likely due to cardiac source. * Patient cannot have MRI of the brain because of presence of pacemaker. * 2-D echo revealed severely impaired left-ventricular systolic function with segmental wall motion abnormality including severe akinesis of the inferior and inferoseptal wall, the rest of the wall are hypokinetic. EF is 30-35%. The catheter is noted in the right ventricle. Moderate to severe mitral and moderate aortic regurgitation. Severe left atrial dilation. * CTA head and neck showed: No evidence of dissection of the cervical internal carotid arteries or vertebral arteries or any evidence of significant stenosis at the right carotid bifurcation. Left carotid bifurcation demonstrates patent stent graft. No evidence of intracranial high-grade stenosis or intracranial aneurysm. * Cardiology consultation to evaluate for possible embolic source, abnormal 2-D echo, to consider for MEGHANA and perhaps ?anticoagulation. * Fasting a.m. lipid panel * Hemoglobin A1c * Permissive hypertension for next 24-48 hours * Patient apparently was not taking any antiplatelet medication at home. Patient has been started on dual antiplatelet medication with aspirin 81 mg and Plavix 75 mg. * Neuro checks. * Telemetry monitoring rule out any arrhythmia * PT, OT, speech therapy * DVT prophylaxis: Lovenox 40 [place] subcu daily. * Neurology will continue to follow. Thank you for the consult.
[2023-08-30] MEDS: CLOPIDOGREL 75 MG TAB PO SCH (10:00)
[2023-08-30] MEDS: ASPIRIN 81 MG PO SCH (10:00)
[2023-08-30] MEDS: ENOXAPARIN 30 MG/0.3 ML SYRINGE SQ SCH (10:00)
--- NOTE | 2023-08-30 10:50 | P.CRDCN ---
History of Present Illness History of present illness: HISTORY OF PRESENT ILLNESS: This is a 88-year-old female with a past medical history significant for coronary artery disease, ischemic cardiomyopathy, AICD implantation, hypertension, hyperlipidemia, valvular heart disease, congestive heart failure, and nicotine dependence. Patient follows in the office with Dr. Gastelum. We have been asked to see the patient in consultation for abnormal echo. Patient examined at the bedside. Patient presented to the hospital with a chief complaint of difficulty in speech. She was found to have acute CVA. Patient currently denies any chest pain or pressure. She denies shortness of breath. The patient is very hard of hearing. There is no family present. Vital signs are stable. Telemetry reveals sinus mechanism with no evidence of atrial fibrillation noted. * EKG reveals paced rhythm * Chest xray COPD changes. No acute cardiopulmonary process noted * Current home cardiac medications include carvedilol 12.5 mg twice a day, Lasix 40 mg daily, pravastatin 40 mg at night, and lisinopril 5 mg at night * Echocardiogram completed revealing ejection fraction 30-35%, severe akinesis of the inferior and inferior septal wall, remaining hannah are hypokinetic, moderate to severe mitral regurgitation, moderate aortic regurgitation, and mild tricuspid regurgitation. REVIEW OF SYSTEMS: At the time of my exam: CONSTITUTIONAL: Denies fever or chills. HEENT: Denies blurred vision, vision changes, or eye pain. Denies hemoptysis CARDIOVASCULAR: Denies chest pain. Denies orthopnea. Denies PND. Denies palpitations RESPIRATORY: Denies shortness of breath. GASTROINTESTINAL: Denies abdominal pain. Denies nausea or vomiting. HEMATOLOGIC: Denies bleeding disorders. GENITOURINARY: Denies any blood in urine. SKIN: Denies pruitis. Denies rash. PHYSICAL EXAM: VITAL SIGNS: Reviewed. GENERAL: Well-developed in no acute distress. HEENT: Head is normocephalic. Pupils are equal, round. Sclerae anicteric. Mucous membranes of the mouth are moist. Neck supple. No JVD or thyromegaly LUNGS: Respirations even and unlabored. Lungs essentially clear to auscultation bilaterally. HEART: Regular rate and rhythm. S1 and S2 heard. Systolic murmur noted ABDOMEN: Soft. Nondistended. Nontender. EXTREMITIES: Normal range of motion. No clubbing or cyanosis. Peripheral pulses intact. No lower extremity edema NEUROLOGIC: Awake and alert. Patient is very hard of hearing. ASSESSMENT: Acute ischemic stroke, left frontal region Known ischemic cardiomyopathy, EF 30% History of AICD implantation (medtronic) History of coronary artery disease Hypertension Hyperlipidemia Valvular heart disease Chronic heart failure with reduced EF, currently euvolemic Nicotine dependence PLAN: Patient has been placed on dual antiplatelet therapy per neurology. Agree with DAPT therapy. Continue home cardiac medications Patient to receive 2 week event monitor tomorrow Interrogate ICD to assess for any arrhythmias Patient to undergo MEGHANA tomorrow with Dr. Marvin Further recommendations pending patient's course Patient to follow-up in the office with Dr. Gastelum in 3 weeks Nurse practitioner note has been reviewed by physician. Signing provider agrees with the documented findings, assessment, and plan of care. Past Medical History Past Medical History: Coronary Artery Disease (CAD), Heart Failure, COPD, CVA/TIA, Hypertension History of Any Multi-Drug Resistant Organisms: None Reported Past Surgical History: Pacemaker Type of Cardiac Device: Permanent Pacemaker Device Placement Date:: unknown Past Psychological History: No Psychological Hx Reported Smoking Status: Current every day smoker Past Alcohol Use History: None Reported Past Drug Use History: None Reported Medications and Allergies Home Medications Medication Instructions Recorded Confirmed Type Carvedilol [Coreg] 12.5 mg PO BID 09/27/16 08/28/23 History Furosemide [Lasix] 40 mg PO DAILY 09/27/16 08/28/23 History Pravastatin Sodium [Pravachol] 40 mg PO HS 09/27/16 08/28/23 History lisinopriL [Prinivil] 5 mg PO HS 09/27/16 08/28/23 History Allergies Allergy/AdvReac Type Severity Reaction Status Date / Time azithromycin Allergy Rash/Hives Verified 08/28/23 17:49 egg Allergy Rash/Hives Verified 08/28/23 17:49 erythromycin base Allergy Rash/Hives Verified 08/28/23 17:49 Penicillins Allergy Rash/Hives Verified 08/28/23 17:49 Sulfa (Sulfonamide Allergy Rash/Hives Verified 08/28/23 17:49 Antibiotics) Physical Exam Vitals: Vital Signs Temp Pulse Pulse Pulse Resp BP BP 08/30/23 04:00 98 F 62 16 140/63 08/30/23 02:00 60 66 16 08/30/23 00:00 97.9 F 66 16 132/60 08/29/23 22:44 60 18 126/59 08/29/23 20:03 98.1 F 60 60 18 122/59 08/29/23 20:00 60 18 08/29/23 16:12 97.6 F 62 20 133/56 08/29/23 12:15 97.5 F L 60 18 110/61 08/29/23 11:34 68 16 148/68 08/29/23 10:56 80 16 145/76 Pulse Ox 08/30/23 04:00 97 08/30/23 02:00 08/30/23 00:00 98 08/29/23 22:44 95 08/29/23 20:03 98 08/29/23 20:00 08/29/23 16:12 98 08/29/23 12:15 99 08/29/23 11:34 98 08/29/23 10:56 98 Intake and Output 08/29/23 08/30/23 08/30/23 22:59 06:59 14:59 Intake Total 118 180 Output Total 300 Balance -182 180 Intake: Oral 118 180 Output: Urine 300 Other: Voiding Method Toilet Toilet # Voids 1 Results 08/28/23 11:39 08/30/23 00:21 Comprehensive Metabolic Panel 08/30/23 Range/Units 00:21 Sodium 139 (137-145) mmol/L Potassium 4.3 (3.5-5.1) mmol/L Chloride 106 (98-107) mmol/L Carbon Dioxide 27 (22-30) mmol/L BUN 28 H (7-17) mg/dL Creatinine 0.99 (0.52-1.04) mg/dL Glucose 79 (74-99) mg/dL Calcium 8.7 (8.4-10.2) mg/dL Current Medications Generic Name Dose Route Start Last Admin Trade Name Freq PRN Reason Stop Dose Admin Acetaminophen 650 mg 08/29/23 08:08 08/29/23 22:41 Acetaminophen Tab 325 Mg Tab PO 650 mg Q6HR PRN Administration Pain Hydrocodone Bitart/Acetaminophen 1 each 08/30/23 04:29 08/30/23 04:53 Hydrocodone/Apap 5-325mg 1 Each Tab PO 1 each Q4HR PRN Administration Pain Aspirin 81 mg 08/29/23 09:00 08/30/23 10:00 Aspirin 81 Mg PO 81 mg DAILY PIPPA Administration Atorvastatin Calcium 40 mg 08/29/23 21:00 08/29/23 20:47 Atorvastatin 40 Mg Tab PO 40 mg HS PIPPA Administration Carvedilol 12.5 mg 08/29/23 07:30 08/30/23 06:08 Carvedilol 12.5 Mg Tab PO 12.5 mg BID-W/MEALS PIPPA Administration Clopidogrel Bisulfate 75 mg 08/30/23 09:00 08/30/23 10:00 Clopidogrel 75 Mg Tab PO 75 mg DAILY PIPPA Administration Enoxaparin Sodium 30 mg 08/30/23 09:00 08/30/23 10:00 Enoxaparin 30 Mg/0.3 Ml Syringe SQ 30 mg DAILY PIPPA Administration Sodium Chloride 1,000 mls @ 50 mls/hr 08/29/23 08:30 08/30/23 04:55 Saline 0.9% IV Not Given .Q20H PIPPA Naloxone HCl 0.2 mg 08/28/23 19:25 Naloxone 0.4 Mg/Ml 1 Ml Vial IV Q2M PRN Opioid Reversal Intake and Output 08/29/23 08/30/23 08/30/23 22:59 06:59 14:59 Intake Total 118 180 Output Total 300 Balance -182 180 Intake: Oral 118 180 Output: Urine 300 Other: Voiding Method Toilet Toilet # Voids 1 08/28/23 11:39 08/30/23 00:21
[2023-08-30 11:14] LABS: Chol/HDL Ratio 2.81 Ratio; LDL Cholesterol,Calculated 54.2 mg/dL (0.0-131.0); VLDL Calculation 18.62 mg/dL (5.00-40.00)
[2023-08-30 11:43] LABS: Glucose,Whole Blood 112 mg/dL (70-110)
[2023-08-30] MEDS ORDERED: DEXTROSE 50% SYRINGE 50 ML IVP PRN ×2 (12:51)
--- NOTE | 2023-08-30 12:54 | P.PN ---
Subjective Progress Note Date: 08/30/23 Hospital course: Patient is a very pleasant 88-year-old female with a past medical history of deafness, CAD status post pacemaker placement, hypertension, and systolic heart failure. She presented to the emergency department on 08/28/23 with a chief complaint of shortness of breath. Per documentation in chart patient's son who does not live with her also indicated that her mentation was not at baseline and that she had delayed speech and thus a CVA workup was pursued. EKG showing a ventricular paced rhythm at 68 bpm. Chest x-ray was negative for acute cardiopulmonary process showing changes of COPD with flattening of the diaphragm and increased lucency in the lungs. CT head was completed revealing findings of acute/subacute CVA involving the left frontal lobe. CTA head and neck showed no evidence of dissection or significant stenosis revealing a left carotid bifurcat ion with patent stent graft, negative for intracranial high-grade stenosis or intracranial aneurysm, and again confirming findings of left frontal lobe subacute/acute infarct. Patient was admitted under our services consultation to neurology. Echocardiogram was completed showing a severely impaired EF of 30- 35% with segmental wall motion abnormalities and moderate to severe mitral and aortic regurgitation. Physical exam: Patient seen and fully evaluated at bedside. Alert and oriented to person only and confused to time, place, and situation. Patient pleasantly confused unable to state why she is here, where she is at, or year but otherwise seems to answer questions appropriately. Vital signs reviewed and stable. General: Nontoxic, no acute distress. Thin and frail Derm: Skin warm and dry, normal coloration for ethnicity. Head: Atraumatic, normocephalic and symmetric. Eyes: EOMs intact, no lid lag, and anicteric sclera Mouth: no lip lesions, mucus membranes moist Cardiovascular: regular rate and rhythm with normal S1S2, systolic murmur, positive posterior tibial pulses bilaterally, and cap refill < 2 seconds. Lungs: Respirations even, regular, and unlabored on room air. Lungs CTA bilaterally, no rhonchi, no rales, no wheezing, and no accessory muscle usage. Abdominal: soft, nontender to palpation, no guarding, no appreciable organomegaly Ext: No gross muscle atrophy, no edema, no contractures movement and sensation of upper and lower extremities is equal and intact. Neuro: Speech clear, face symmetrical and CN II-XII grossly intact with no noted focal neuro deficits Psych: Alert and oriented to person only and confused to time, place, and situation. Patient pleasantly confused unable to state why she is here, where she is at, or year but otherwise seems to answer questions appropriately. Assessment and Plan of Care: Acute/subacute CVA Hypernatremia Acute kidney injury Hypoglycemia Severe protein malnutrition Chronic conditions: Deafness, CAD, hypertension, systolic CHF -Continue telemetry monitoring. -Continue Neuro checks every 4 hours -Neurology consulted, appreciate further recommendations. -Consult placed to PT/OT -Fall precautions -Telemetry monitoring -Continue [id number] glucose checks every 6 hours -Acute/subacute CVA: A1c. Lipid panel. Echo. Neurochecks. Telemetry monitoring. PT/OT/ST consult. Neurology consult. -Hypernatremia: Dehydration. Start NS at 50 cc/hr. Caution due to low EF. -Acute kidney injury: Management as above. -Severe protein malnutrition, order placed for protein supplements 3 times daily between meals. Encourage oral intake. CODE STATUS: Full code DVT prophylaxis: Lovenox Anticipated discharge date: Anticipated discharge place: Patient was seen independently by Nurse Pracitioner. This document was prepared using [employer] dictation software. Please allow for errors in senior energy consultant, while rare they do occur. Objective - Vital Signs Vital signs: Vital Signs Temp 98 F 08/30/23 04:00 Pulse 62 08/30/23 04:00 Resp 16 08/30/23 04:00 BP 140/63 08/30/23 04:00 Pulse Ox 97 08/30/23 04:00 FiO2 Intake & Output 08/29/23 08/30/23 08/30/23 18:59 06:59 18:59 Intake Total 236 Output Total 300 Balance -64 Weight 49.895 kg Intake: Oral 236 Output: Urine 300 Other: Voiding Method Toilet Toilet # Voids 1 - Labs CBC & Chem 7: 08/28/23 11:39 08/30/23 00:21 Labs: Abnormal Lab Results - Last 24 Hours (Table) 08/29/23 08/29/23 08/29/23 Range/Units 12:18 13:01 13:43 BUN (7-17) mg/dL POC Glucose (mg/dL) 68 L 69 L 127 H (70-110) mg/dL 10/31/23 10/31/23 11/01/23 Range/Units 16:14 19:51 00:21 BUN 28 H (7-17) mg/dL POC Glucose (mg/dL) 200 H 137 H (70-110) mg/dL Microbiology - Last 24 Hours (Table) 08/28/23 16:52 Blood Culture - Preliminary Blood 08/28/23 16:52 Blood Culture - Preliminary Blood
[2023-08-30 16:51] LABS: Glucose,Whole Blood 142 mg/dL (70-110)
[2023-08-30] MEDS: ATORVASTATIN 40 MG TAB PO SCH (21:12)
[2023-08-30] MEDS: lisinopriL 5 MG TAB PO SCH (21:13)
[2023-08-31 05:49] LABS: Glucose,Whole Blood 97 mg/dL (70-110)
[2023-08-31 06:54] LABS: Glucose,Whole Blood 101 mg/dL (70-110)
[2023-08-31] MEDS: HYDROcodone/APAP 5-325MG 1 EACH TAB PO PRN ×2 (08:01→20:58)
[2023-08-31] MEDS: CLOPIDOGREL 75 MG TAB PO SCH (08:01)
[2023-08-31] MEDS: ASPIRIN 81 MG PO SCH (08:02)
[2023-08-31] MEDS: ENOXAPARIN 30 MG/0.3 ML SYRINGE SQ SCH (08:02)
[2023-08-31] MEDS: FUROSEMIDE 40 MG TAB PO SCH (08:02)
[2023-08-31] MEDS: carvediloL 12.5 MG TAB PO SCH ×2 (08:02→18:06)
[2023-08-31 08:59] LABS: HCT 38.8 % (34.0-46.0); HGB 12.4 gm/dL (11.4-16.0); Hypochromasia Slight; MCH 29.8 pg (25.0-35.0); MCHC 31.9 g/dL (31.0-37.0); MCV 93.5 fL (80.0-100.0); Platelet Count 128 k/uL (150-450); RBC 4.15 m/uL (3.80-5.40); RDW 12.8 % (11.5-15.5); WBC 6.7 k/uL (3.8-10.6)
[2023-08-31 09:02] LABS: ALT 18 U/L (4-34); African American GFR (CKD) 85 (>60 ml/min/1.73 sqM); Albumin 3.1 g/dL (3.5-5.0); Anion Gap 7 mmol/L; Blood Urea Nitrogen 17 mg/dL (7-17); Calcium 8.8 mg/dL (8.4-10.2); Carbon Dioxide 27 mmol/L (22-30); Chloride 108 mmol/L (98-107); Glucose 83 mg/dL (74-99); Magnesium 1.8 mg/dL (1.6-2.3); Non-African American GFR(CKD) 74 (>60 ml/min/1.73 sqM); Sodium 142 mmol/L (137-145); Total Bilirubin 0.8 mg/dL (0.2-1.3)
[2023-08-31 09:04] LABS: AST 41 U/L (14-36); Alkaline Phosphatase 44 U/L (38-126); Potassium 4.9 mmol/L (3.5-5.1)
--- NOTE | 2023-08-31 10:59 | P.PN ---
Subjective Progress Note Date: 08/30/23 Patient was seen for a follow-up. Patient is sitting comfortably in the recliner. Patient's granddaughter was also present today. She admits that patient is slightly slurring speech. No new concerns. Patient's granddaughter agrees that patient came to the hospital the following day after symptoms sta rted. She was not a candidate for TPA. Objective - Vital Signs Vital signs: Vital Signs Temp 97.2 F L 08/30/23 08:00 Pulse 63 08/30/23 12:00 Resp 16 08/30/23 14:00 BP 128/56 08/30/23 12:00 Pulse Ox 99 08/30/23 12:00 FiO2 Intake & Output 08/29/23 08/30/23 08/30/23 18:59 06:59 18:59 Intake Total 236 360 Output Total 300 Balance -64 360 Weight 49.895 kg Intake: Oral 236 360 Output: Urine 300 Other: Voiding Method Toilet Toilet # Voids 1 - Exam Significant for some slurred speech, and right facial droop. No pronator drift. No ataxia. Sensations equal. Visual trimble full. - Labs CBC & Chem 7: 08/31/23 07:29 08/31/23 07:29 Labs: Abnormal Lab Results - Last 24 Hours (Table) 08/28/23 08/29/23 08/29/23 Range/Units 11:39 16:14 19:51 BUN (7-17) mg/dL POC Glucose (mg/dL) 200 H 137 H (70-110) mg/dL Hemoglobin A1c 6.2 H (<=6.0) % 08/30/23 08/30/23 Range/Units 00:21 11:40 BUN 28 H (7-17) mg/dL POC Glucose (mg/dL) 112 H (70-110) mg/dL Hemoglobin A1c (<=6.0) % Microbiology - Last 24 Hours (Table) 08/28/23 16:52 Blood Culture - Preliminary Blood 08/28/23 16:52 Blood Culture - Preliminary Blood Assessment and Plan Assessment: * Acute ischemic stroke left frontal region, probably due to distal embolism. * Heart failure * CAD * COPD * Hypertension * Pacemaker * History of left ICA stent Plan: * Patient came with acute stroke. Patient was not a candidate for TPA, as she came outside the window for TPA. No large vessel occlusion. * Patient's stroke appears embolic in nature, most likely due to cardiac source. * Patient cannot have MRI of the brain because of presence of pacemaker. * 2-D echo revealed severely impaired left-ventricular systolic function with segmental wall motion abnormality including severe akinesis of the inferior and inferoseptal wall, the rest of the wall are hypokinetic. EF is 30-35%. The catheter is noted in the right ventricle. Moderate to severe mitral and moderate aortic regurgitation. Severe left atrial dilation. * Cardiology input appreciated. Patient undergoing MEGHANA in the morning. * CTA head and neck showed: No evidence of dissection of the cervical internal carotid arteries or vertebral arteries or any evidence of significant stenosis at the right carotid bifurcation. Left carotid bifurcation demonstrates patent stent graft. No evidence of intracranial high-grade stenosis or intrac ranial aneurysm. * Fasting a.m. lipid panel cholesterol 113, LDL 54, HDL 40 and triglycerides 93. Continue Lipitor 40 mg daily. * Hemoglobin A1c 6.2, consistent with prediabetes. * Optimize control of blood pressure. * Patient apparently was not taking any antiplatelet medication at home. Patient has been started on dual antiplatelet medication with aspirin 81 mg and Plavix 75 mg, pending cardiac workup. * Neuro checks. * Telemetry monitoring rule out any arrhythmia * PT, OT, speech therapy * DVT prophylaxis: Lovenox 40 mg subcu daily. * Discussed with patient's granddaughter in detail.
[2023-08-31] MEDS ORDERED: fentaNYL (PF) 50 MCG/ML 2 ML AMP ONE (11:09)
[2023-08-31] MEDS ORDERED: IV FLUID CONTINUATION 850 ML IV ONE (11:31)
[2023-08-31] MEDS ORDERED: BENZOCAINE SPRAY 1 CAN TOPICAL ONE (11:31)
[2023-08-31] MEDS ORDERED: MIDAZOLAM 2 MG/2 ML VIAL IVP ONE (11:48)
[2023-08-31] MEDS ORDERED: fentaNYL (PF) 50 MCG/ML 2 ML AMP IVP ONE (11:49)
--- NOTE | 2023-08-31 12:06 | P.PCN ---
Date of Procedure: 08/31/23 Description of Procedure: Indication: CVA Procedure Description: After explaining the procedure to the patient, it's risk and complications, blood pressure, heart rate and O2 saturation were monitored. The throat was sprayed with Cetacaine. Patient received 1 mg intravenous Versed, 50 mcg intravenous fentanyl. The probe was introduced into the esophagus without difficulty. Images were obtained. Following that, the probe was removed. There was no immediate complication. Findings: Left atrial size is dilated, left atrial appendage is normal. Left ventricular systolic function is severely impaired with inferior and inferoseptal akinesis. Ejection fraction is estimated at 30-35%. Mitral valve revealed mild thickening of the leaflets. Aortic sclerosis with no evidence of stenosis was noted. Tricuspid valve is normal. A wire is noted in the right ventricle. No pericardial effusion was noted. Descending thoracic aorta revealed no significant atherosclerotic changes. Contrast bubble study revealed no shunting across the intra-atrial septum with Valsalva maneuver. Doppler: Pulse wave and color Doppler were obtained, and revealed moderate mitral with [id number] aortic and mild tricuspid regurgitation. There was [id number] shunting through a PFO with no reversal of shunting. Conclusion: 1. Dilated left atrium with normal appearance of the left atrial appendage 2. Severely impaired left ventricle systolic function with segmental wall motion abnormality 3. Wire was noted in the right ventricle 4. Gfdm-vz-[id number] shunting through a patent foramen ovale with no evidence of reversal of flow 5. Moderate mitral with [id number] aortic and mild tricuspid regurgitati on
[2023-08-31 12:35] LABS: Glucose,Whole Blood 90 mg/dL (70-110)
--- NOTE | 2023-08-31 13:45 | P.PN ---
Subjective Progress Note Date: 08/31/23 Hospital Course: Patient is a very pleasant 88-year-old female with a past medical history of deafness, CAD status post pacemaker placement, hypertension, and systolic heart failure. She presented to the emergency department on 08/28/23 with a chief complaint of shortness of breath. Per documentation in chart patient's son who does not live with her also indicated that her mentation was not at baseline and that she had delayed speech and thus a CVA workup was pursued. EKG showing a ventricular paced rhythm at 68 bpm. Chest x-ray was negative for acute cardiopulmonary process showing changes of COPD with flattening of the diaphragm and increased lucency in the lungs. CT head was completed revealing findings of acute/subacute CVA involving the left frontal lobe. CTA head and neck showed no evidence of dissection or significant stenosis revealing a left carotid bifurcation with patent stent graft, negative for intracranial high-grade stenosis or intracranial aneurysm, and again confirming findings of left frontal lobe subacute/acute infarct. Patient was admitted under our services consultation to neurology. Echocardiogram was completed showing a severely impaired EF of 30-35% with segmental wall motion abnormalities and moderate to severe mitral and aortic regurgitation. Cardiology consulted. She had a MEGHANA that showed severely impaired left ventricle systolic function, left to right shunting through a patent foramen ovale with no evidence of reversible. Breast ultrasound revealed a 4.2 cm suspicious mass concerning for breast cancer, oncology evaluation pending. Subjective: Patient seen and examined at bedside. No acute events overnight. Pertinent positives and negatives as discussed above, a complete review of systems was performed and all other systems are negative. Vitals Signs Reviewed. General: Nontoxic, no acute distress. Thin and frail Derm: Skin warm and dry, normal coloration for ethnicity. Head: Atraumatic, normocephalic and symmetric. Eyes: EOMs intact, no lid lag, and anicteric sclera Mouth: no lip lesions, mucus membranes moist Cardiovascular: regular rate and rhythm with normal S1S2, systolic murmur, positive posterior tibial pulses bilaterally, and cap refill < 2 seconds. Lungs: Respirations even, regular, and unlabored on room air. Lungs CTA bilaterally, no rhonchi, no rales, no wheezing, and no accessory muscle usage. Abdominal: soft, nontender to palpation, no guarding, no appreciable organomegaly Ext: No gross muscle atrophy, no edema, no contractures movement and sensation of upper and lower extremities is equal and intact. Neuro: Speech clear, face symmetrical and CN II-XII grossly intact with no noted focal neuro deficits Psych: Alert and oriented, cooperative Data Reviewed Today: Pertinent Labs: WBC 6.7, hemoglobin 12.4, platelet 128, creatinine 0.73, glucose range between 83-101 Imaging: MEGHANA showed severely impaired left ventricle systolic function, left to right shunting through a patent [place] with no evidence of reversible. Assessment and Plan: [Active:] Acute/subacute left frontal ischemic stroke PFO found on MEGHANA Prediabetes with hyperglycemia Ischemic cardiomyopathy status post AICD Heart failure with reduced ejection fraction Breast mass -Discussed management with neurology, continue aspirin 81 mg, Plavix 75 mg daily, atorvastatin 40 mg daily -Discussed management with cardiology, patient pending two-week event monitor placement, no intervention is needed for patent foramen ovale -On Coreg 12.5 mg twice a day, lisinopril 5 mg daily -Also on Lasix 40 mg daily -Oncology consulted, pending recommendations [Resolved:] Acute kidney injury Hypernatremia [Chronic:] CAD Hypertension DVT ppx: Lovenox Code status: Full code Anticipated discharge place: Pending clinical course Anticipated discharge time: Pending clinical course Objective - Vital Signs Vital signs: Vital Signs Temp 97.8 F 08/31/23 12:02 Pulse 63 08/31/23 12:02 Resp 16 08/31/23 12:02 BP 145/63 08/31/23 12:02 Pulse Ox 96 08/31/23 12:02 FiO2 Intake & Output 08/30/23 08/31/23 08/31/23 18:59 06:59 18:59 Intake Total 540 100 Output Total 0 Balance 540 0 100 Intake: IV 100 Oral 540 Output: Urine 0 Other: Voiding Method Toilet # Voids 2 - Labs CBC & Chem 7: 08/31/23 07:29 08/31/23 07:29 Labs: Abnormal Lab Results - Last 24 Hours (Table) 08/30/23 08/31/23 08/31/23 Range/Units 16:49 07:29 07:29 Plt Count 128 L (150-450) k/uL Chloride 108 H (98-107) mmol/L POC Glucose (mg/dL) 142 H (70-110) mg/dL AST 41 H (14-36) U/L Total Protein 6.0 L (6.3-8.2) g/dL Albumin 3.1 L (3.5-5.0) g/dL Microbiology - Last 24 Hours (Table) 08/28/23 16:52 Blood Culture - Preliminary Blood 08/28/23 16:52 Blood Culture - Preliminary Blood
[2023-08-31] MEDS: SODIUM CHLORIDE 0.9% 1,000 ML IV SCH ×2 (15:56→19:48)
--- NOTE | 2023-08-31 16:51 | P.GSCN ---
History of Present Illness Consult date: 08/31/23 Reason for Consult: Left breast mass History of present illness: 88-year-old female hospitalized for shortness of breath. Patient apparently l kristen at home by herself. Patient was confused on arrival. New-onset CVA suspected on admission. Studies performed suggest possible embolic source of ischemic stroke. During this hospital stay she was found to have a left breast mass. History of possible breast malignancy in the past. During this hospital stay had a breast ultrasound performed showing a 4-5 cm BIRADS 5 lesion. A somewhat suspicious left axillary lymph node also noted. Patient is unaware there is a mass present. She does describe having a rash beneath breast folds bilaterally. Review of Systems ROS unobtainable: due to mental status Past Medical History Past Medical History: Coronary Artery Disease (CAD), Heart Failure, COPD, CVA/TIA, Hypertension History of Any Multi-Drug Resistant Organisms: None Reported Past Surgical History: Pacemaker Type of Cardiac Device: Permanent Pacemaker Device Placement Date:: unknown Past Psychological History: No Psychological Hx Reported Smoking Status: Current every day smoker Past Alcohol Use History: None Reported Past Drug Use History: None Reported Medications and Allergies Home Medications Medication Instructions Recorded Confirmed Type Carvedilol [Coreg] 12.5 mg PO BID 09/27/16 08/28/23 History Furosemide [Lasix] 40 mg PO DAILY 09/27/16 08/28/23 History Pravastatin Sodium [Pravachol] 40 mg PO HS 09/27/16 08/28/23 History lisinopriL [Prinivil] 5 mg PO HS 09/27/16 08/28/23 History Allergies Allergy/AdvReac Type Severity Reaction Status Date / Time azithromycin Allergy Rash/Hives Verified 08/28/23 17:49 egg Allergy Rash/Hives Verified 08/28/23 17:49 erythromycin base Allergy Rash/Hives Verified 08/28/23 17:49 Penicillins Allergy Rash/Hives Verified 08/28/23 17:49 Sulfa (Sulfonamide Allergy Rash/Hives Verified 08/28/23 17:49 Antibiotics) Surgical - Exam Vital Signs Temp Pulse Resp BP Pulse Ox 98.8 F 75 20 149/58 93 L 08/28/23 10:51 08/28/23 10:51 08/28/23 10:51 08/28/23 10:51 08/28/23 10:51 Physical exam: Nurse present General: Well-developed, well-nourished HEENT: Normocephalic, sclerae nonicteric Right breast: No masses, no adenopathy, rash present beneath the breast fold Left breast: Fixed mass inner quadrant inferiorly, 4-5 cm in size, dimpling of the skin and inversion of the left nipple, no palpable adenopathy, rash beneath full present, pacemaker present upper outer quadrant Abdomen: Nontender, nondistended Extremities: No edema Neuro: Alert and oriented Results - Labs 08/31/23 07:29 08/31/23 07:29 Abnormal Lab Results - Last 24 Hours (Table) 08/30/23 08/31/23 08/31/23 Range/Units 16:49 07:29 07:29 Plt Count 128 L (150-450) k/uL Chloride 108 H (98-107) mmol/L POC Glucose (mg/dL) 142 H (70-110) mg/dL AST 41 H (14-36) U/L Total Protein 6.0 L (6.3-8.2) g/dL Albumin 3.1 L (3.5-5.0) g/dL Microbiology - Last 24 Hours (Table) 08/28/23 16:52 Blood Culture - Preliminary Blood 08/28/23 16:52 Blood Culture - Preliminary Blood Diabetes panel 08/31/23 Range/Units 07:29 Sodium 142 (137-145) mmol/L Potassium 4.9 (3.5-5.1) mmol/L Chloride 108 H (98-107) mmol/L Carbon Dioxide 27 (22-30) mmol/L BUN 17 (7-17) mg/dL Creatinine 0.73 (0.52-1.04) mg/dL Glucose 83 (74-99) mg/dL Calcium 8.8 (8.4-10.2) mg/dL AST 41 H (14-36) U/L ALT 18 (4-34) U/L Alkaline Phosphatase 44 (38-126) U/L Total Protein 6.0 L (6.3-8.2) g/dL Albumin 3.1 L (3.5-5.0) g/dL Calcium panel 08/31/23 Range/Units 07:29 Calcium 8.8 (8.4-10.2) mg/dL Albumin 3.1 L (3.5-5.0) g/dL Pituitary panel 08/31/23 Range/Units 07:29 Sodium 142 (137-145) mmol/L Potassium 4.9 (3.5-5.1) mmol/L Chloride 108 H (98-107) mmol/L Carbon Dioxide 27 (22-30) mmol/L BUN 17 (7-17) mg/dL Creatinine 0.73 (0.52-1.04) mg/dL Glucose 83 (74-99) mg/dL Calcium 8.8 (8.4-10.2) mg/dL Adrenal panel 08/31/23 Range/Units 07:29 Sodium 142 (137-145) mmol/L Potassium 4.9 (3.5-5.1) mmol/L Chloride 108 H (98-107) mmol/L Carbon Dioxide 27 (22-30) mmol/L BUN 17 (7-17) mg/dL Creatinine 0.73 (0.52-1.04) mg/dL Glucose 83 (74-99) mg/dL Calcium 8.8 (8.4-10.2) mg/dL Total Bilirubin 0.8 (0.2-1.3) mg/dL AST 41 H (14-36) U/L ALT 18 (4-34) U/L Alkaline Phosphatase 44 (38-126) U/L Total Protein 6.0 L (6.3-8.2) g/dL Albumin 3.1 L (3.5-5.0) g/dL Assessment and Plan (1) Breast mass Narrative/Plan: 88-year-old female with left breast mass. This is consistent with malignancy. Will require ultrasound core biopsy of the mass and the left axillary lymph node. This would typically be performed in the outpatient setting. Patient may be a candidate for neoadjuvant hormonal therapy at this time. Patient is now on Plavix limiting our ability to biopsy the lesion currently. We'll discuss further with other services lines. Current Visit: Yes Status: Acute Code(s): N63.0 - UNSPECIFIED LUMP IN UNSPECIFIED BREAST SNOMED Code(s): 28592581
[2023-08-31 17:05] LABS: Glucose,Whole Blood 82 mg/dL (70-110)
[2023-08-31 19:01] LABS: Glucose,Whole Blood 144 mg/dL (70-110)
[2023-08-31] MEDS: ATORVASTATIN 40 MG TAB PO SCH (21:27)
[2023-08-31] MEDS: lisinopriL 5 MG TAB PO SCH (21:27)
[2023-09-01 00:12] VITALS: RESP 18
[2023-09-01 06:14] LABS: Glucose,Whole Blood 90 mg/dL (70-110)
[2023-09-01] MEDS: carvediloL 12.5 MG TAB PO SCH (06:16)
[2023-09-01] MEDS ORDERED: ZINC OXIDE PASTE (Z-GUARD) 1 APPLIC APPLIC TOPICAL PRN (08:48)
[2023-09-01] MEDS: ASPIRIN 81 MG PO SCH (08:52)
[2023-09-01] MEDS: FUROSEMIDE 40 MG TAB PO SCH (08:52)
[2023-09-01] MEDS: ACETAMINOPHEN TAB 325 MG TAB PO PRN (08:52)
[2023-09-01] MEDS: CLOPIDOGREL 75 MG TAB PO SCH (08:52)
[2023-09-01] MEDS ORDERED: NYSTATIN 100,000 UNIT/GM POWD 15 GM TOPICAL SCH (09:00)
[2023-09-01] MEDS ORDERED: ENOXAPARIN 40 MG/0.4 ML SYRINGE SQ SCH (09:00)
--- NOTE | 2023-09-01 09:27 | P.CONS ---
History of Present Illness - Reason for Consult Consult date: 08/31/23 left breast mass Requesting physician: Tereso Lee - Chief Complaint CVA - History of Present Illness Patient is a 88-year-old female with a significant history of COPD, CHF, CVA and nicotine dependence. Consult was placed for left breast mass. Patient presented to the emergency department reporting cough. Patients son also reported patient was experiencing acute mental status change and delayed speech. CT brain revealed findings of acute/subacute CVA involving the left frontal lobe. With no evidence for hemorrhagic conversion. CTA head and neck. No evidence of dissection of the cervical internal carotid arteries or vertebral arteries or any evidence of significant stenosis at the right carotid bifurcation. Left carotid bifurcation demonstrates patent stent graft. No evidence of intracranial high-grade stenosis or intracranial aneurysm. neurology following. Chest x-ray showed no acute cardiopulmonary processes with COPD changes. Left breast ultrasound revealed mass measuring 4.2 x 3.7 x 3.3 cm. And mildly thickened but nonenlarged lymph node in the left axilla measuring 9 x 8 x 6 mm. Patient reports last mammogram was years ago and states breast mass has been there for a while but has not had further evaluation for it. Review of Systems 10 point ROS is negative except as stated in the HPI Past Medical History Past Medical History: Coronary Artery Disease (CAD), Heart Failure, COPD, CVA/TIA, Hypertension History of Any Multi-Drug Resistant Organisms: None Reported Past Surgical History: Pacemaker Type of Cardiac Device: Permanent Pacemaker Device Placement Date:: unknown Past Psychological History: No Psychological Hx Reported Smoking Status: Current every day smoker Past Alcohol Use History: None Reported Past Drug Use History: None Reported Medications and Allergies Home Medications Medication Instructions Recorded Confirmed Type Carvedilol [Coreg] 12.5 mg PO BID 09/27/16 08/28/23 History Furosemide [Lasix] 40 mg PO DAILY 09/27/16 08/28/23 History Pravastatin Sodium [Pravachol] 40 mg PO HS 09/27/16 08/28/23 History lisinopriL [Prinivil] 5 mg PO HS 09/27/16 08/28/23 History Allergies Allergy/AdvReac Type Severity Reaction Status Date / Time azithromycin Allergy Rash/Hives Verified 08/28/23 17:49 egg Allergy Rash/Hives Verified 08/28/23 17:49 erythromycin base Allergy Rash/Hives Verified 08/28/23 17:49 Penicillins Allergy Rash/Hives Verified 08/28/23 17:49 Sulfa (Sulfonamide Allergy Rash/Hives Verified 08/28/23 17:49 Antibiotics) Physical Exam Vitals: Vital Signs Temp Pulse Pulse Resp BP Pulse Ox 08/31/23 15:47 98.0 F 62 16 149/64 96 08/31/23 12:02 97.8 F 63 16 145/63 96 08/31/23 12:00 61 14 99 08/31/23 11:54 67 18 134/63 93 L 08/31/23 11:49 64 20 134/63 99 08/31/23 11:30 63 18 129/63 99 08/31/23 11:15 62 61 16 122/57 08/31/23 09:40 16 08/31/23 08:00 18 08/31/23 07:56 98.0 F 85 18 131/66 96 08/31/23 04:00 97.5 F L 79 16 126/55 98 08/31/23 02:00 60 64 16 08/31/23 00:00 98.0 F 64 16 115/57 93 L 08/30/23 20:00 98.5 F 60 69 16 126/74 95 Intake and Output 08/31/23 08/31/23 08/31/23 06:59 14:59 22:59 Intake Total 100 118 Output Total 0 800 Balance 0 -700 118 Intake: IV 100 Oral 118 Output: Urine 0 800 Other: Voiding Method Toilet # Voids 1 - Constitutional General appearance: average body habitus, no acute distress - EENT Eyes: anicteric sclerae - Neck left axilla lymph node nonpalpable., left breast mass palpated on medial aspect, approx 10:00 - Respiratory Respiratory: bilateral: CTA - Cardiovascular Rhythm: regular Heart sounds: normal: S1, S2 - Integumentary Integumentary: no cyanotic - Psychiatric Psychiatric: A&O x's 3, appropriate affect, intact judgment & insight Results CBC & Chem 7: 08/31/23 07:29 08/31/23 07:29 Labs: Abnormal Lab Results - Last 24 Hours (Table) 08/31/23 08/31/23 08/31/23 Range/Units 07:29 07:29 18:58 Plt Count 128 L (150-450) k/uL Chloride 108 H (98-107) mmol/L POC Glucose (mg/dL) 144 H (70-110) mg/dL AST 41 H (14-36) U/L Total Protein 6.0 L (6.3-8.2) g/dL Albumin 3.1 L (3.5-5.0) g/dL Microbiology - Last 24 Hours (Table) 08/28/23 16:52 Blood Culture - Preliminary Blood 08/28/23 16:52 Blood Culture - Preliminary Blood Comments: breast ultrasound reviewed Chest x-ray: report reviewed CT Scan - head: report reviewed Assessment and Plan (1) CVA (cerebral vascular accident) Current Visit: Yes Status: Acute Priority: High Code(s): I63.9 - CEREBRAL INFARCTION, UNSPECIFIED SNOMED Code(s): 525704250 (2) Breast mass Current Visit: Yes Status: Acute Priority: High Code(s): N63.0 - UNSPECIFIED LUMP IN UNSPECIFIED BREAST SNOMED Code(s): 34718600 Plan: Left breast mass: -Left breast ultrasound revealed mass measuring 4.2 x 3.7 x 3.3 cm. And mildly thickened but nonenlarged lymph node in the left axilla measuring 9 x 8 x 6 mm. Patient reports last mammogram was years ago and states breast mass has been there for a while but has not had further evaluation for it. -General surgery consulted for biopsy. Pt currently on plavix, per note will plan for outpt. Will speak to cardiology regarding holding plavix prior to procedure -Will obtain PET CT outpt -Tumor markers ordered Pt updated on POC and is agreeable to proceed with further testing CVA: -CT brain revealed findings of acute/subacute CVA involving the left frontal lobe. With no evidence for hemorrhagic conversion. -Neurology following. attests: I have seen and examined patient, performed H&P, developed impression and plan of care. Discussed with dictator. Agree with d ocumentation, dictated as a scribe
--- NOTE | 2023-09-01 11:11 | P.DS ---
Providers Date of admission: 08/28/23 19:25 Expected date of discharge: 09/01/23 Attending physician: Dennis Sinclair MD Consults: 08/28/23 19:25 Consult Physician Routine Consulting Provider: Ezequiel Mccloud Consult Reason/Comments: cva Do you want consulting provider notified?: Yes 08/29/23 23:21 Consult Physician Routine Consulting Provider: David Holland Consult Reason/Comments: severely imparied left vent cardiac function , non sust Vtach Do you want consulting provider notified?: Yes 08/30/23 19:06 Consult Physician Routine Consulting Provider: Everardo Frias Consult Reason/Comments: left breast mass concerning for breast cancer Do you want consulting provider notified?: Yes 08/31/23 13:04 Consult Physician Routine Consulting Provider: Ed Gu Consult Reason/Comments: left breast mass Do you want consulting provider notified?: Yes [facility]: Discharge Diagnosis: Acute/subacute left frontal ischemic stroke PFO found on MEGHANA Prediabetes with hyperglycemia Ischemic cardiomyopathy status post AICD Heart failure with reduced ejection fraction Breast mass 4.2 cm suspicious for malignancy Acute kidney injury Hypernatremia Hospital Course: Patient is a very pleasant 88-year-old female with a past medical history of deafness, CAD status post pacemaker placement, hypertension, and systolic heart failure. She presented to the emergency department on 08/28/23 with a chief complaint of shortness of breath. Per documentation in chart patient's son who does not live with her also indicated that her mentation was not at baseline and that she had delayed speech and thus a CVA workup was pursued. EKG showing a ventricular paced rhythm at 68 bpm. Chest x-ray was negative for acute cardiopulmonary process showing changes of COPD with flattening of the diaphragm and increased lucency in the lungs. CT head was completed revealing findings of acute/subacute CVA involving the left frontal lobe. CTA head and neck showed no evidence of dissection or significant stenosis revealing a left carotid bifurcation with patent stent graft, negative for intracranial high-grade stenosis or intracranial aneurysm, and again confirming findings of left frontal lobe subacute/acute infarct. Patient was admitted under our services consultation to neurology. Echocardiogram was completed showing a severely impaired EF of 30-35% with segmental wall motion abnormalities and moderate to severe mitral and aortic regurgitation. Cardiology consulted. She had a MEGHANA that showed severely impaired left ventricle systolic function, left to right shunting through a patent foramen ovale with no evidence of reversible. Breast ultrasound revealed a 4.2 cm suspicious mass concerning for breast cancer, onco logy evaluated the patient. Recommending biopsy outpatient. General surgery also consulted, recommending the same. Patient will follow-up with PCP, cardiology, oncology and general surgery. Discharge to subacute rehab. Patient seen and examined at bedside. Vital signs reviewed and stable. General: Nontoxic, no acute distress. Thin and frail Derm: Skin warm and dry, normal coloration for ethnicity. Head: Atraumatic, normocephalic and symmetric. Eyes: EOMs intact, no lid lag, and anicteric sclera Mouth: no lip lesions, mucus membranes moist Cardiovascular: regular rate and rhythm with normal S1S2, systolic murmur, positive posterior tibial pulses bilaterally, and cap refill < 2 seconds. Lungs: Respirations even, regular, and unlabored on room air. Lungs CTA bilaterally, no rhonchi, no rales, no wheezing, and no accessory muscle usage. Abdominal: soft, nontender to palpation, no guarding, no appreciable organomegaly Ext: No gross muscle atrophy, no edema, no contractures movement and sensation of upper and lower extremities is equal and intact. Neuro: Speech clear, face symmetrical and CN II-XII grossly intact with no noted focal neuro deficits Psych: Alert and oriented, cooperative A total of 36 minutes of time were spent preparing this complex discharge summary. Patient was discharged on 09/01/23 at 10:30. Patient Condition at Discharge: Stable Plan - Discharge Summary Discharge Rx Participant: No New Discharge Prescriptions: New Atorvastatin [Lipitor] 40 mg PO HS tab Nystatin 100,000 Unit/gm Powd [Mycostatin Powder] 1 applic TOPICAL TID each Acetaminophen Tab [Tylenol] 650 mg PO Q6HR PRN tab PRN Reason: Pain Aspirin 81 mg PO DAILY tab Clopidogrel [Plavix] 75 mg PO DAILY tab Continue Carvedilol [Coreg] 12.5 mg PO BID Furosemide [Lasix] 40 mg PO DAILY lisinopriL [Prinivil] 5 mg PO HS Discontinued Pravastatin Sodium [Pravachol] 40 mg PO HS Discharge Medication List Carvedilol [Coreg] 12.5 mg PO BID 09/27/16 [History] Furosemide [Lasix] 40 mg PO DAILY 09/27/16 [History] lisinopriL [Prinivil] 5 mg PO HS 09/27/16 [History] Acetaminophen Tab [Tylenol] 650 mg PO Q6HR PRN tab 09/01/23 [Rx] Aspirin 81 mg PO DAILY tab 09/01/23 [Rx] Atorvastatin [Lipitor] 40 mg PO HS tab 09/01/23 [Rx] Clopidogrel [Plavix] 75 mg PO DAILY tab 09/01/23 [Rx] Nystatin 100,000 Unit/gm Powd [Mycostatin Powder] 1 applic TOPICAL TID each 09/01/23 [Rx] Follow up Appointment(s)/Referral(s): Ed Gu MD [Medical Doctor] - 1 Week Everardo Frias [STAFF PHYSICIAN] - 1 Week Claire Garrett MD [STAFF PHYSICIAN] - 1 Week Mario Courtney DO [Primary Care Provider] - 1-2 days Patient Instructions/Handouts: Heart Failure (DC), Ischemic Stroke (DC), Breast Mass (GEN) Activity/Diet/Wound Care/Special Instructions: Please see your PCP, cardiology, oncology and surgery. Discharge Disposition: TRANSFER TO SNF/ECF
[2023-09-01 11:25] LABS: Glucose,Whole Blood 105 mg/dL (70-110)
[2023-09-01 11:28] VITALS: TEMP 97.8
--- NOTE | 2023-09-01 11:39 | P.PN ---
Subjective Progress Note Date: 09/01/23 CHIEF COMPLAINT: Left breast mass HISTORY OF PRESENT ILLNESS: Patient admitted with ischemic stroke. Patient's sitting up in bed comfortably. She reports no pain in the left breast. Medicine service is planning discharge today. Afebrile. PHYSICAL EXAM: VITAL SIGNS: Reviewed. GENERAL: Well-developed in no acute distress. Left breast: Fixed mass on left breast inferiorly, inner portion. Dimpling present. Nipple is inverted. Rash noted under breast. ABDOMEN: Soft. Nondistended. Nontender. NEUROLOGIC: Alert and oriented. Cranial nerves II through XII grossly intact. ASSESSMENT: 1. Left breast mass. This is consistent with malignancy PLAN: -Patient will require ultrasound core biopsy of the mass and left axillary lymph node. -Procedure typically performed in the outpatient setting -Cardiology has given the okay that the Plavix can be held for 5 days prior to biopsy being completed -Patient to follow up in the office with Dr. Gu Physician Manager Career note has been reviewed by physician. Signing provider agrees with the documented findings, assessment, and plan of care. Objective - Vital Signs Vital signs: Vital Signs Temp 98.0 F 09/01/23 04:00 Pulse 67 09/01/23 04:00 Resp 18 09/01/23 04:00 BP 131/68 09/01/23 04:00 Pulse Ox 99 09/01/23 04:00 FiO2 Intake & Output 08/31/23 09/01/23 09/01/23 18:59 06:59 18:59 Intake Total 218 Output Total 800 400 Balance -582 -400 Intake: IV 100 Oral 118 Output: Urine 800 400 Other: Voiding Method External Catheter # Voids 1 - Labs CBC & Chem 7: 08/31/23 07:29 08/31/23 07:29 Labs: Abnormal Lab Results - Last 24 Hours (Table) 08/31/23 Range/Units 18:58 POC Glucose (mg/dL) 144 H (70-110) mg/dL Microbiology - Last 24 Hours (Table) 08/28/23 16:52 Blood Culture - Preliminary Blood 08/28/23 16:52 Blood Culture - Preliminary Blood
[2023-09-01] MEDS: SODIUM CHLORIDE 0.9% 1,000 ML IV SCH (12:35)
[2023-09-01 13:23] VITALS: BP 120/68; PULSE 67
--- NOTE | 2023-09-01 13:38 | PN ---
PROGRESS NOTE SUBJECTIVE: This lady had a recent subacute stroke, on Plavix and aspirin. Transesophageal echo revealed a small PFO. No thrombus. However, this lady is being considered for a breast biopsy. Plavix to be held by the surgeon, but I am recommending to check with the neurologist before we do this. OBJECTIVE: VITALS: Stable. HEART: S1, S2 heard normally. LUNGS: Clear. ABDOMEN: Unchanged. EXTREMITIES: Lower extremities exam otherwise is unchanged. MMODL / IJN: [id number] /
--- NOTE | 2023-09-01 14:30 | P.PN ---
Subjective Progress Note Date: 08/31/23 Patient was seen for a follow-up. Patient is sitting comfortably in the recliner. Patient admits that she is still slightly slurred speech. Offers no new complaints. Objective - Vital Signs Vital signs: Vital Signs Temp 97.8 F 09/01/23 08:00 Pulse 67 09/01/23 12:00 Resp 18 09/01/23 12:00 BP 120/68 09/01/23 12:00 Pulse Ox 94 L 09/01/23 12:00 FiO2 Intake & Output 08/31/23 09/01/23 09/01/23 18:59 06:59 18:59 Intake Total 218 Output Total 800 400 Balance -582 -400 Intake: IV 100 Oral 118 Output: Urine 800 400 Other: Voiding Method External Catheter External Catheter # Voids 1 - Exam Significant for some slurred speech, no facial droop. No pronator drift. No ataxia. Sensations equal. Visual trimble full. - Labs CBC & Chem 7: 08/31/23 07:29 08/31/23 07:29 Labs: Abnormal Lab Results - Last 24 Hours (Table) 08/31/23 Range/Units 18:58 POC Glucose (mg/dL) 144 H (70-110) mg/dL Microbiology - Last 24 Hours (Table) 08/28/23 16:52 Blood Culture - Preliminary Blood 08/28/23 16:52 Blood Culture - Preliminary Blood Assessment and Plan Assessment: * Acute ischemic stroke left frontal region, probably due to distal embolism. * Heart failure * CAD * COPD * Hypertension * Pacemaker * History of left ICA stent Plan: * Patient came with acute stroke. Patient was not a candidate for TPA, as she came outside the window for TPA. No large vessel occlusion. * Patient's stroke appears embolic in nature, most likely due to cardiac source. * Patient cannot have MRI of the brain because of presence of pacemaker. * 2-D echo revealed severely impaired left-ventricular systolic function with segmental wall motion abnormality including severe akinesis of the inferior and inferoseptal wall, the rest of the wall are hypokinetic. EF is 30-35%. The catheter is noted in the right ventricle. Moderate to severe mitral and moderate aortic regurgitation. Severe left atrial dilation. * Cardiology input appreciated. * MEGHANA was performed, which revealed: * Dilated left atrium with normal appearance of the left atrial appendage. Severely impaired left ventricular systolic function with segmental wall motion abnormality. Wire noted in the right ventricle. Left to right shunting through the patent foramen ovale with no evidence of reversal of flow. Moderate mitral with [id number] aortic and mild tricuspid regurgitation. * Cardiology following the patient, recommending DAPT, , not recommending anticoagulation. * Patient will undergo 30 day event monitoring to evaluate for paroxysmal atrial fibrillation. * Patient with follow with cardiology. * CTA head and neck showed: No evidence of dissection of the cervical internal carotid arteries or vertebral arteries or any evidence of significant stenosis at the right carotid bifurcation. Left carotid bifurcation demonstrates pat ent stent graft. No evidence of intracranial high-grade stenosis or intracranial aneurysm. * Fasting a.m. lipid panel cholesterol 113, LDL 54, HDL 40 and triglycerides 93. Continue Lipitor 40 mg daily. * Hemoglobin A1c 6.2, consistent with prediabetes. * Optimize control of blood pressure. * Patient apparently was not taking any antiplatelet medication at home. Patient has been started on dual antiplatelet medication with aspirin 81 mg and Plavix 75 mg. no indication for anticoagulation per cardiology. * Patient also has breast mass, for which patient is followed up with surgery. * Telemetry monitoring rule out any arrhythmia * PT, OT, speech therapy * DVT prophylaxis: Lovenox 40 mg subcu daily. * Neurologically clear for discharge.
--- NOTE | 2023-09-01 15:29 | P.PN ---
Subjective Progress Note Date: 09/01/23 Principal diagnosis: left breast mass At today's visit patient is resting comfortably in bed, family at bedside. Discussed with patient and family findings of left breast mass and POC. Patient is reporting feeling well overall, c/o persisting cough. Objective - Vital Signs Vital signs: Vital Signs Temp 97.8 F 09/01/23 08:00 Pulse 67 09/01/23 12:00 Resp 18 09/01/23 12:00 BP 120/68 09/01/23 12:00 Pulse Ox 94 L 09/01/23 12:00 FiO2 Intake & Output 08/31/23 09/01/23 09/01/23 18:59 06:59 18:59 Intake Total 218 Output Total 800 400 Balance -582 -400 Intake: IV 100 Oral 118 Output: Urine 800 400 Other: Voiding Method External Catheter External Catheter # Voids 1 - Constitutional General appearance: Present: no acute distress, thin - EENT Eyes: Present: anicteric sclerae, EOMI ENT: Present: hearing grossly normal - Respiratory Details: breathing is even and unlabored - Cardiovascular Details: skin warm and dry - Integumentary Integumentary: Absent: cyanotic - Musculoskeletal Musculoskeletal: Present: generalized weakness - Psychiatric Psychiatric: Present: A&O x's 3 - Labs CBC & Chem 7: 08/31/23 07:29 08/31/23 07:29 Labs: Abnormal Lab Results - Last 24 Hours (Table) 08/31/23 Range/Units 18:58 POC Glucose (mg/dL) 144 H (70-110) mg/dL Microbiology - Last 24 Hours (Table) 08/28/23 16:52 Blood Culture - Preliminary Blood 08/28/23 16:52 Blood Culture - Preliminary Blood Assessment and Plan (1) CVA (cerebral vascular accident) Status: Acute Priority: High Code(s): I63.9 - CEREBRAL INFARCTION, UNSPECIFIED SNOMED Code(s): 930251318 (2) Breast mass Status: Acute Priority: High Code(s): N63.0 - UNSPECIFIED LUMP IN UNSPECIFIED BREAST SNOMED Code(s): 64721735 Plan: Left breast mass: -Left breast ultrasound revealed mass measuring 4.2 x 3.7 x 3.3 cm. And mildly thickened but nonenlarged lymph node in the left axilla measuring 9 x 8 x 6 mm. Patient reports last mammogram was years ago and states breast mass has been there for a while but has not had further evaluation for it. -General surgery consulted for breast biopsy. Pt currently on plavix, per note will plan for outpt. Spoke with cardiology regarding anticoagulation, they were okay with holding Plavix for 5 days prior to procedure. Surgery team updated. Patient is scheduled for mammogram on 09/05 with subsequent follow-up with surgical team for biopsy -Will obtain PET CT outpt -Tumor markers ordered, results pending -Clinic f/u will be scheduled upon discharge Pt and family updated on POC and is agreeable to proceed with further testing CVA: -CT brain revealed findings of acute/subacute CVA involving the left frontal lobe. With no evidence for hemorrhagic conversion. -Neurology following. attests: I have seen and examined patient, performed H&P, developed impression and plan of care. Discussed with dictator. Agree with documentation, dictated as a scribe
== END 2023-09-01 14:05 | DRG 64 ==
LOC: EC 10:46 → 3SCARD 19:25
PROVIDERS: ADMIT Internal Medicine; ATTEND Internal Medicine
PROC: B24BZZ4 Ultrasonography of Heart with Aorta, Transesophageal (ICD-10-PCS; principal; 2023-08-31 07:30)
DX: I63.9 Cerebral infarction, unspecified (principal); E43 Unspecified severe protein-calorie malnutrition; E87.0 Hyperosmolality and hypernatremia; I47.20 Ventricular tachycardia, unspecified; I50.22 Chronic systolic (congestive) heart failure; N17.9 Acute kidney failure, unspecified; Q21.12 Patent foramen ovale; I11.0 Hypertensive heart disease with heart failure; E86.0 Dehydration; E78.5 Hyperlipidemia, unspecified; F17.200 Nicotine dependence, unspecified, uncomplicated; F80.9 Developmental disorder of speech and language, unspecified; H91.90 Unspecified hearing loss, unspecified ear; I08.0 Rheumatic disorders of both mitral and aortic valves; I25.10 Atherosclerotic heart disease of native coronary artery without angina pectoris; R73.03 Prediabetes; I25.5 Ischemic cardiomyopathy; R73.9 Hyperglycemia, unspecified; J06.9 Acute upper respiratory infection, unspecified; Z20.822 Contact with and (suspected) exposure to COVID-19; N63.20 Unspecified lump in the left breast, unspecified quadrant; R29.701 NIHSS score 1; Z79.899 Other long term (current) drug therapy; Z85.3 Personal history of malignant neoplasm of breast; Z86.73 Personal history of transient ischemic attack (TIA), and cerebral infarction without residual deficits; Z95.810 Presence of automatic (implantable) cardiac defibrillator; Z88.0 Allergy status to penicillin; Z88.8 Allergy status to other drugs, medicaments and biological substances; Z88.2 Allergy status to sulfonamides; Z68.20 Body mass index [BMI] 20.0-20.9, adult
CPT/HCPCS: 36415; 70450; 70496; 70498; 71046; 80048; 80053; 80061; 83036; 83605; 83735; 83880; 84484; 85025; 85027; 85610; 85730; 86300; 87040; 87636; 93005; 93270; 93306; 93312; 93320; 93325; 94640; 96372; 96374; 99285

== ENCOUNTER → 2023-09-25 | Outpatient (CLI) | payer MEDICARE ==
--- NOTE | 2023-09-25 11:39 | MM ---
Reason for Exam: Clinical finding. Baseline mammogram. Indicated Problems: Lump or thickening of the left side for 2 Month(s). Prior Study Comparison: Patient's first Mammogram. Tissue Density: The breast tissue is almost entirely fat. Findings: Analyzed By CAD. Findings on ultrasound is not definitively visualized on mammography. No suspicious calcifications or distortions visualized. Pacemaker is present in the left breast. Overall Assessment: Highly suggestive of malignancy, BI-RAD 5 Management: Ultrasound Core Biopsy of the left breast. Finding on prior ultrasound on 08/29/2023 in the left breast is not definitively visualized on mammography which could be partially due to patient body habitus/technique. Ultrasound-guided biopsy recommended Results were given to the patient verbally at the time of exam. Patient should continue monthly self-breast exams. A clinical breast exam by your physician is recommended on an annual basis. This exam should not preclude additional follow-up of suspicious palpable abnormalities. Note on Sowmya scores and lifetime risk: 1. A Sowmya score greater than 3% is considered moderate risk. If this is the case, consider specialist referral to assess eligibility for a risk reducing agent. 2. If overall lifetime risk for the development of breast cancer is 20% or higher, the patient may qualify for future screening with alternating mammogram and breast MRI. Electronically signed and approved by: Philip Russell DO
== END | disposition home or self-care (01) ==
LOC: RADMAMWWP 10:47
PROVIDERS: ATTEND Surgery
DX: R92.8 Other abnormal and inconclusive findings on diagnostic imaging of breast (principal); N63.20 Unspecified lump in the left breast, unspecified quadrant; R92.313 Mammographic fatty tissue density, bilateral breasts; Z95.0 Presence of cardiac pacemaker
CPT/HCPCS: 77066; G0279; 77062